=== PATIENT | female | born 1975 | race American Indian/Alaskan Native ===

== ENCOUNTER 2017-05-18 18:12 | Emergency (ER) | payer MEDICARE ==
--- NOTE | 2017-05-18 18:35 | Emergency Department Report ---
Entered by KING BARROS, acting as scribe for LIAM DIAZ NP. Chief Complaint: Chest Pain Stated Complaint: CHEST PAIN/LT SIDE PAIN Time Seen by Provider: 05/18/17 18:29 - HPI History of Present Illness: 41 y/o female presents to the ED c/o chest pain that began today. Associated symptoms include diaphoresis. Denies nausea and vomiting. Patient states her whole left side is aching and throbbing. NKDA. - ROS Review of Systems: +chest pain +diaphoresis -nausea -vomiting - Exam Vital Signs: Vital Signs 05/18/17 18:25 Temperature 98.7 F Pulse Rate 107 H Respiratory 20 Rate Blood Pressure 158/103 O2 Sat by Pulse 100 Oximetry Physical Exam: pt looks well, non toxic. obese cw not ttp mildy tachycardic MSE screening note: Focused history and physical exam performed. Due to findings the following was ordered: labs, ekg, xr ED Disposition for MSE Condition: Stable This documentation as recorded by the scribe,KING BARROS,accurately reflects the service I personally performed and the decisions made by JOE rodriguez TRACY M, SHEILA.
[2017-05-18 18:59] LABS: Basophils % (Auto) 0.9 % (0.0-1.8); Eosinophils % (Auto) 1.4 % (0.0-4.3); Hematocrit 31.6 % (30.3-42.9); Hemoglobin 9.5 gm/dl (10.1-14.3); Mean Corpuscular HGB Conc 30 % (30-34); Platelet Count 228 K/mm3 (140-440); Red Blood Count 4.73 M/mm3 (3.65-5.03); Red Cell Distribution Width 17.1 % (13.2-15.2); White Blood Count 7.9 K/mm3 (4.5-11.0)
[2017-05-18 19:00] LABS: Mean Corpuscular Hemoglobin 20 pg (28-32); Mean Corpuscular Volume 67 fl (79-97)
[2017-05-18 19:19] LABS: Alanine Aminotransferase 10 units/L (7-56); Albumin 4.1 g/dL (3.9-5); Albumin/Globulin Ratio 1.2 %; Alkaline Phosphatase 84 units/L (35-129); Anion Gap 21 mmol/L; BUN/Creatinine Ratio 8.57; Bilirubin,Total < 0.20 mg/dL (0.1-1.2); Blood Urea Nitrogen 6 mg/dL (7-17); Calcium 9.3 mg/dL (8.4-10.2); Carbon Dioxide 24 mmol/L (22-30); Chloride 95.6 mmol/L (98-107); Glucose 486 mg/dL (65-100); Potassium 3.3 mmol/L (3.6-5.0); Sodium 137 mmol/L (137-145); Total Protein 7.4 g/dL (6.3-8.2)
[2017-05-18 19:21] LABS: Urine Drugs of Abuse Note Disclamer
[2017-05-18 19:30] LABS: Bilirubin,Urine NEG (Negative); Blood,Urine NEG (Negative); Ketones,Urine NEG (Negative); Leukocyte Esterase,Urine NEG (Negative); Nitrite,Urine NEG (Negative); Protein,Urine <15 mg/dL mg/dL (Negative); RBC,Urine < 1.0 /HPF (0.0-6.0); Urobilinogen,Urine < 2.0 mg/dL (<2.0); WBC,Urine < 1.0 /HPF (0.0-6.0)
[2017-05-19] MEDS ORDERED: ZOFRAN IV ONE (01:10)
[2017-05-19] MEDS ORDERED: NACL 0.9% 1000 ML 1,000 ML IV ONE (01:10)
[2017-05-19] MEDS ORDERED: MORPHINE IV ONE (01:10)
[2017-05-19] MEDS ORDERED: K-DUR PO ONE (01:10)
--- NOTE | 2017-05-19 01:16 | Emergency Department Report ---
ED Chest Pain HPI - General Chief Complaint: Chest Pain Stated Complaint: CHEST PAIN/LT SIDE PAIN Time Seen by Provider: 05/18/17 18:29 Source: patient, old records reviewed (recent discharge summary reviewed. Patient had a negative stress test here 02/13/2016) Mode of arrival: Wheelchair Limitations: No Limitations - History of Present Illness Initial Comments: 41-year-old female with a past medical history as dependent diabetes, hypertension, elevated cholesterol, left BKA, and DVT presents to the hospital complains of left-sided chest pain and left leg pain. Patient has chronic left leg pain secondary to phantom pain and previous amputation. Patient states today she developed left-sided upper chest pain with some mild diaphoresis. Pain is intermittent, sharp, rated 8/10 in intensity, and some increased with movement. No change with deep inspiration, cough, shortness of breath, nausea, or vomiting reported. Patient was recently admitted here April 30 for acute left lower extremity DVT secondary to Xarelto noncompliance. Patient states she is taking her Xarelto daily since discharge. UDS + for cocaine. Pt states last use was April 16 - Related Data Home Medications Medication Instructions Recorded Confirmed Last Taken Atorvastatin Calcium 80 mg PO HS 09/24/16 04/30/17 04/29/17 Insulin Glargine [Lantus VIAL] 25 units SQ QHS 04/30/17 04/30/17 04/29/17 Insulin Lispro [HumaLOG VIAL] 25 units SQ QAM 04/30/17 04/30/17 04/29/17 Previous Rx's Medication Instructions Recorded Last Taken Type Hydrochlorothiazide [HCTZ] 12.5 mg PO QDAY #30 capsule 04/27/16 04/23/17 Rx Lisinopril [Zestril TAB] 40 mg PO QDAY #30 tablet 04/27/16 04/29/17 Rx Rivaroxaban [Xarelto] 15 mg PO BID #20 tablet 05/03/17 Unknown Rx Rivaroxaban [Xarelto] 20 mg PO QDAY #30 tablet 05/03/17 Unknown Rx HYDROcodone/APAP 5-325 [[place] 1 each PO Q6H PRN #15 tablet 05/19/17 Unknown Rx 5-325 mg TAB] Potassium Chloride [K-Dur] 20 meq PO QDAY #3 tablet 05/19/17 Unknown Rx Allergies Allergy/AdvReac Type Severity Reaction Status Date / Time No Known Allergies Allergy Verified 01/24/16 08:25 Heart Score - HEART Score History: Slightly suspicious EKG: Non-specific Age: < 45 Risk factors: > 3 risk factors or hx of atherosclerotic disease Troponin: < normal limit HEART Score: 3 ED Review of Systems ROS: Stated complaint: CHEST PAIN/LT SIDE PAIN Other details as noted in HPI Comment: All other systems reviewed and negative Other: Constitutional: No fevers chills Eyes: No eye pain visual changes ENT: No ear pain or throat pain Neck: Denies pain Respiratory: Denies cough wheezing shortness of breath Cardiovascular: Denies palpitations, syncope GI: Denies abdominal pain, nausea, vomiting, diarrhea : Denies dysuria Musculoskeletal: Denies back pain Skin: Denies rash, lesions, erythema Neurologic: Denies headache, numbness, weakness Psychiatric: Denies suicidal ideation, hallucinations ED Past Medical Hx - Past Medical History Hx Hypertension: Yes Hx Congestive Heart Failure: No Hx Diabetes: Yes (2005) Hx Deep Vein Thrombosis: Yes Hx Pulmonary Embolism: Yes Hx GERD: Yes Hx Arthritis: Yes Hx Asthma: No Hx COPD: No Hx HIV: No Additional medical history: high cholesterol - Surgical History Hx Cholecystectomy: Yes Additional Surgical History: L shoulder sgx 2008., DVT removal left leg 01/2016. c sec. left BKA - Social History Smoking Status: Current Every Day Smoker Substance Use Type: Alcohol - Medications Home Medications: Home Medications Medication Instructions Recorded Confirmed Last Taken Type Hydrochlorothiazide [HCTZ] 12.5 mg PO QDAY #30 capsule 04/27/16 04/30/17 Rx Lisinopril [Zestril TAB] 40 mg PO QDAY #30 tablet 04/27/16 04/30/17 04/29/17 Rx Atorvastatin Calcium 80 mg PO HS 09/24/16 04/30/17 04/29/17 History Insulin Glargine [Lantus VIAL] 25 units SQ QHS 04/30/17 04/30/17 04/29/17 History Insulin Lispro [HumaLOG VIAL] 25 units SQ QAM 04/30/17 04/30/17 04/29/17 History Rivaroxaban [Xarelto] 15 mg PO BID #20 tablet 05/03/17 Unknown Rx Rivaroxaban [Xarelto] 20 mg PO QDAY #30 tablet 05/03/17 Unknown Rx HYDROcodone/APAP 5-325 [[place] 1 each PO Q6H PRN #15 tablet 05/19/17 Unknown Rx 5-325 mg TAB] Potassium Chloride [K-Dur] 20 meq PO QDAY #3 tablet 05/19/17 Unknown Rx ED Physical Exam - General Limitations: No Limitations - Other Other exam information: General: No limitations, patient is alert in no acute distress Head exam: Atraumatic, normocephalic Eyes exam: Normal appearance ENT: Moist mucous membrane, normal oropharynx Neck exam: Normal inspection, full range of motion Cardiovascular: Normal rate and rhythm, normal heart sounds Abdomen: Soft, nondistended, and nontender, with normal bowel sounds, no rebound, or guarding Extremity: Full range of motion, left BKA without signs of swelling, tenderness , or leg asymmetry Back: Normal Inspection, full range of motion, no tenderness Neurologic: Alert, oriented x3, cranial nerves intact, no motor or sensory deficit Psychiatric: normal affect, normal mood Skin: Warm, dry, intact ED Course Vital Signs 05/18/17 05/19/17 05/19/17 18:25 00:57 01:00 Temperature 98.7 F Pulse Rate 107 H 95 H 88 Respiratory 20 14 12 Rate Blood Pressure 158/103 O2 Sat by Pulse 100 99 Oximetry 05/19/17 01:15 Temperature Pulse Rate 76 Respiratory Rate Blood Pressure O2 Sat by Pulse Oximetry - Reevaluation(s) Reevaluation #1: 05/19/17 01:18 Morphine, normal saline, insulin, Zofran, PO KCL ordered ct angiogram pending LEOBARDO score - Leobardo Score Age > 65: (0) No Aspirin use within the Past 7 Days: (0) No 3 or more CAD Risk Factors: (1) Yes 2 or more Angina events in past 24 hrs: (0) No Known CAD with more than 50% Stenosis: (0) No Elevated Cardiac Markers: (0) No ST Deviation Greater than 0.5mm: (0) No LEOBARDO Score: 1 ED Medical Decision Making - Lab Data Result diagrams: 05/18/17 18:45 05/18/17 18:45 Lab Results 05/18/17 05/18/17 05/18/17 Range/Units 18:45 18:45 18:45 WBC 7.9 (4.5-11.0) K/mm3 RBC 4.73 (3.65-5.03) M/mm3 Hgb 9.5 L (10.1-14.3) gm/dl Hct 31.6 (30.3-42.9) % MCV 67 L (79-97) fl MCH 20 L (28-32) pg MCHC 30 (30-34) % RDW 17.1 H (13.2-15.2) % Plt Count 228 (140-440) K/mm3 Lymph % (Auto) 23.8 (13.4-35.0) % [place] % (Auto) 3.9 (0.0-7.3) % Eos % (Auto) 1.4 (0.0-4.3) % Baso % (Auto) 0.9 (0.0-1.8) % Lymph # 1.9 (1.2-5.4) K/mm3 [place] # 0.3 (0.0-0.8) K/mm3 Eos # 0.1 (0.0-0.4) K/mm3 Baso # 0.1 (0.0-0.1) K/mm3 Seg Neutrophils % 70.0 (40.0-70.0) % Seg Neutrophils # 5.5 (1.8-7.7) K/mm3 Sodium 137 (137-145) mmol/L Potassium 3.3 L (3.6-5.0) mmol/L Chloride 95.6 L (98-107) mmol/L Carbon Dioxide 24 (22-30) mmol/L Anion Gap 21 mmol/L BUN 6 L (7-17) mg/dL Creatinine 0.7 (0.7-1.2) mg/dL Estimated GFR > 60 ml/min BUN/Creatinine Ratio 8.57 % Glucose 486 H (65-100) mg/dL Calcium 9.3 (8.4-10.2) mg/dL Total Bilirubin < 0.20 (0.1-1.2) mg/dL AST 10 (5-40) units/L ALT 10 (7-56) units/L Alkaline Phosphatase 84 (35-129) units/L Total Creatine Kinase (30-135) units/L Troponin T < 0.010 (0.00-0.029) ng/mL Total Protein 7.4 (6.3-8.2) g/dL Albumin 4.1 (3.9-5) g/dL Albumin/Globulin Ratio 1.2 % HCG, Qual Negative (Negative) Urine Color (Yellow) Urine Turbidity (Clear) Urine pH (5.0-7.0) Ur Specific Bell (1.003-1.030) Urine Protein (Negative) mg/dL Urine Glucose (UA) (Negative) mg/dL Urine Ketones (Negative) mg/dL Urine Blood (Negative) Urine Nitrite (Negative) Urine Bilirubin (Negative) Urine Urobilinogen (<2.0) mg/dL Ur Leukocyte Esterase (Negative) Urine WBC (Auto) (0.0-6.0) /HPF Urine RBC (Auto) (0.0-6.0) /HPF U Epithel Cells (Auto) (0-13.0) /HPF Urine HCG, Qual (Negative) Urine Opiates Screen Urine Methadone Screen Ur Barbiturates Screen Ur Phencyclidine Scrn Ur Amphetamines Screen U Benzodiazepines Scrn Urine Cocaine Screen U Marijuana (THC) Screen Drugs of Abuse Note 05/18/17 05/18/17 05/18/17 Range/Units 18:45 19:13 19:13 WBC (4.5-11.0) K/mm3 RBC (3.65-5.03) M/mm3 Hgb (10.1-14.3) gm/dl Hct (30.3-42.9) % MCV (79-97) fl MCH (28-32) pg MCHC (30-34) % RDW (13.2-15.2) % Plt Count (140-440) K/mm3 Lymph % (Auto) (13.4-35.0) % [place] % (Auto) (0.0-7.3) % Eos % (Auto) (0.0-4.3) % Baso % (Auto) (0.0-1.8) % Lymph # (1.2-5.4) K/mm3 [place] # (0.0-0.8) K/mm3 Eos # (0.0-0.4) K/mm3 Baso # (0.0-0.1) K/mm3 Seg Neutrophils % (40.0-70.0) % Seg Neutrophils # (1.8-7.7) K/mm3 Sodium (137-145) mmol/L Potassium (3.6-5.0) mmol/L Chloride (98-107) mmol/L Carbon Dioxide (22-30) mmol/L Anion Gap mmol/L BUN (7-17) mg/dL Creatinine (0.7-1.2) mg/dL Estimated GFR ml/min BUN/Creatinine Ratio % Glucose (65-100) mg/dL Calcium (8.4-10.2) mg/dL Total Bilirubin (0.1-1.2) mg/dL AST (5-40) units/L ALT (7-56) units/L Alkaline Phosphatase (35-129) units/L Total Creatine Kinase 58 (30-135) units/L Troponin T (0.00-0.029) ng/mL Total Protein (6.3-8.2) g/dL Albumin (3.9-5) g/dL Albumin/Globulin Ratio % HCG, Qual (Negative) Urine Color Straw (Yellow) Urine Turbidity Clear (Clear) Urine pH 7.0 (5.0-7.0) Ur Specific Bell 1.028 (1.003-1.030) Urine Protein <15 mg/dl (Negative) mg/dL Urine Glucose (UA) >=500 (Negative) mg/dL Urine Ketones Neg (Negative) mg/dL Urine Blood Neg (Negative) Urine Nitrite Neg (Negative) Urine Bilirubin Neg (Negative) Urine Urobilinogen < 2.0 (<2.0) mg/dL Ur Leukocyte Esterase Neg (Negative) Urine WBC (Auto) < 1.0 (0.0-6.0) /HPF Urine RBC (Auto) < 1.0 (0.0-6.0) /HPF U Epithel Cells (Auto) < 1.0 (0-13.0) /HPF Urine HCG, Qual (Negative) Urine Opiates Screen Presumptive negative Urine Methadone Screen Presumptive negative Ur Barbiturates Screen Presumptive negative Ur Phencyclidine Scrn Presumptive negative Ur Amphetamines Screen Presumptive negative U Benzodiazepines Scrn Presumptive negative Urine Cocaine Screen Presumptive positive U Marijuana (THC) Screen Presumptive negative Drugs of Abuse Note Disclamer 05/19/17 05/19/17 Range/Units 00:52 01:13 WBC (4.5-11.0) K/mm3 RBC (3.65-5.03) M/mm3 Hgb (10.1-14.3) gm/dl Hct (30.3-42.9) % MCV (79-97) fl MCH (28-32) pg MCHC (30-34) % RDW (13.2-15.2) % Plt Count (140-440) K/mm3 Lymph % (Auto) (13.4-35.0) % [place] % (Auto) (0.0-7.3) % Eos % (Auto) (0.0-4.3) % Baso % (Auto) (0.0-1.8) % Lymph # (1.2-5.4) K/mm3 [place] # (0.0-0.8) K/mm3 Eos # (0.0-0.4) K/mm3 Baso # (0.0-0.1) K/mm3 Seg Neutrophils % (40.0-70.0) % Seg Neutrophils # (1.8-7.7) K/mm3 Sodium (137-145) mmol/L Potassium (3.6-5.0) mmol/L Chloride (98-107) mmol/L Carbon Dioxide (22-30) mmol/L Anion Gap mmol/L BUN (7-17) mg/dL Creatinine (0.7-1.2) mg/dL Estimated GFR ml/min BUN/Creatinine Ratio % Glucose (65-100) mg/dL Calcium (8.4-10.2) mg/dL Total Bilirubin (0.1-1.2) mg/dL AST (5-40) units/L ALT (7-56) units/L Alkaline Phosphatase (35-129) units/L Total Creatine Kinase (30-135) units/L Troponin T < 0.010 (0.00-0.029) ng/mL Total Protein (6.3-8.2) g/dL Albumin (3.9-5) g/dL Albumin/Globulin Ratio % HCG, Qual (Negative) Urine Color (Yellow) Urine Turbidity (Clear) Urine pH (5.0-7.0) Ur Specific Bell (1.003-1.030) Urine Protein (Negative) mg/dL Urine Glucose (UA) (Negative) mg/dL Urine Ketones (Negative) mg/dL Urine Blood (Negative) Urine Nitrite (Negative) Urine Bilirubin (Negative) Urine Urobilinogen (<2.0) mg/dL Ur Leukocyte Esterase (Negative) Urine WBC (Auto) (0.0-6.0) /HPF Urine RBC (Auto) (0.0-6.0) /HPF U Epithel Cells (Auto) (0-13.0) /HPF Urine HCG, Qual Negative (Negative) Urine Opiates Screen Urine Methadone Screen Ur Barbiturates Screen Ur Phencyclidine Scrn Ur Amphetamines Screen U Benzodiazepines Scrn Urine Cocaine Screen U Marijuana (THC) Screen Drugs of Abuse Note - EKG Data -: EKG Interpreted by Me (sinus rate 97, lvh, lae, anteroseptal infarct) - EKG Data When compared to previous EKG there are: no significant change (compared to 04/29) - Radiology Data Radiology results: report reviewed, image reviewed (cxr: naf) ct angio chest: normal - Medical Decision Making UDs + cocaine (use 2-3 days ago) ekg unchanged trop neg x2 over [address] angio neg Plan to d/c pt home with pain meds for atypical cp and chronic left leg pain Pt consulted on the importance stopping cocaine use. - Differential Diagnosis atypical chest pain, pleurisy, OH, unstable angina, PE, disection Critical Care Time: No Critical care attestation.: If time is entered above; I have spent that time in minutes in the direct care of this critically ill patient, excluding procedure time. ED Disposition Clinical Impression: Atypical chest pain, Amputation of left lower extremity below knee, Diabetes, Anemia, Hypertension, Hypokalemia, Left leg DVT, Left leg pain, Cocaine abuse Disposition: TO HOME OR SELFCARE Is pt being admited?: No Does the pt Need Aspirin: No Condition: Stable Instructions: Chest Pain (ED), Diabetes Mellitus Type 2 in Adults (ED), Hypertension (ED), Cocaine Abuse (ED), Hypokalemia (ED) Additional Instructions: Take the medication as prescribed. STOP COCAINE USE. Return if symptom worsen. Prescriptions: HYDROcodone/APAP 5-325 [[place] 5-325 mg TAB] 1 each PO Q6H PRN #15 tablet PRN Reason: Pain, Moderate (4-6) Potassium Chloride [K-Dur] 20 meq PO QDAY #3 tablet Referrals: RK PADILLA III, FINANCIAL SERVICES ASSISTANT-BC [Primary Care Provider] - 3-5 Days Time of Disposition: 03:42
[2017-05-19] MEDS ORDERED: NACL ONE (01:25)
--- NOTE | 2017-05-19 02:19 | Cat Scan Report ---
FINAL REPORT PROCEDURE: CT ANGIO CHEST TECHNIQUE: Computerized tomographic angiography of the chest was performed after the IV injection of iodinated nonionic contrast including image processing. The image data was postprocessed using 2-dimensional multiplanar reformatted (MPR) and 3-dimensional (MIP and/or volume rendered) techniques. HISTORY: left sharp cp, hx of dvt COMPARISON: 02/12/2016 FINDINGS: Heart and pericardium: Normal. Thoracic aorta: Normal. Pulmonary vasculature: Normal. Lymph nodes: No enlarged thoracic lymph nodes. Lungs: Normal. Pleural space: No effusion, thickening, or pneumothorax. Musculoskeletal structures: No significant abnormality. Upper abdominal structures: No significant abnormality. IMPRESSION: Normal Examination
[2017-05-19 03:43] VITALS: BP 151/100
--- NOTE | 2017-05-19 07:56 | XRay Report ---
ROUTINE CHEST, TWO VIEWS: HISTORY: chest pain. The trachea, heart, mediastinal contour, lung rios and bony thorax are unremarkable. No significant change since 02/12/16. IMPRESSION: Unremarkable chest x-ray.
== END 2017-05-19 04:02 | disposition home or self-care (01) ==
LOC: ED 18:12
DX: R07.89 Other chest pain (principal); I10 Essential (primary) hypertension; E11.9 Type 2 diabetes mellitus without complications; E87.6 Hypokalemia; F14.10 Cocaine abuse, uncomplicated; I82.402 Acute embolism and thrombosis of unspecified deep veins of left lower extremity; D64.9 Anemia, unspecified; E78.00 Pure hypercholesterolemia, unspecified; F17.210 Nicotine dependence, cigarettes, uncomplicated; M19.90 Unspecified osteoarthritis, unspecified site; K21.9 Gastro-esophageal reflux disease without esophagitis; Z89.512 Acquired absence of left leg below knee; Z79.4 Long term (current) use of insulin
CPT/HCPCS: 36415; 71020; 71275; 80053; 80307; 81001; 81025; 82550; 82962; 84484; 84703; 85025; 93005; 93010; 96361; 96374; 96375; 99285; J2270; J2405; J7030; Q9967; J1815

== ENCOUNTER 2018-05-31 12:46 | Emergency (ER) | payer MEDICARE ==
[2018-05-31 13:04] VITALS: BP 187/111
== END 2018-05-31 13:04 | disposition left against medical advice (07) ==
LOC: ED 12:46
DX: R07.9 Chest pain, unspecified (principal); Z53.21 Procedure and treatment not carried out due to patient leaving prior to being seen by health care provider

== ENCOUNTER 2018-06-23 03:58 | Observation (INO) | payer MEDICARE ==
[2018-06-23] MEDS ORDERED: ASPIRIN PO ONE (04:44)
[2018-06-23 05:33] LABS: Basophils % (Auto) 0.8 % (0.0-1.8); Eosinophils # (Auto) 0.1 K/mm3 (0.0-0.4); Eosinophils % (Auto) 1.3 % (0.0-4.3); Hematocrit 38.4 % (30.3-42.9); Hemoglobin 12.8 gm/dl (10.1-14.3); Lymphocytes # (Auto) 1.9 K/mm3 (1.2-5.4); Lymphocytes % (Auto) 29.9 % (13.4-35.0); Mean Corpuscular HGB Conc 33 % (30-34); Mean Corpuscular Volume 78 fl (79-97); Monocytes # (Auto) 0.3 K/mm3 (0.0-0.8); Monocytes % (Auto) 4.6 % (0.0-7.3); Platelet Count 210 K/mm3 (140-440); Red Blood Count 4.95 M/mm3 (3.65-5.03); Red Cell Distribution Width 16.4 % (13.2-15.2)
[2018-06-23 05:36] LABS: Mean Corpuscular Hemoglobin 26 pg (28-32)
[2018-06-23 05:50] LABS: BUN/Creatinine Ratio 20; Blood Urea Nitrogen 12 mg/dL (7-17); Calcium 9.7 mg/dL (8.4-10.2); Hemolysis Index 10
[2018-06-23] MEDS ORDERED: MORPHINE IV ONE (10:46)
[2018-06-23] MEDS ORDERED: HumuLIN R IV ONE (10:46)
--- NOTE | 2018-06-23 10:49 | Emergency Department Report ---
ED Chest Pain HPI - General Chief Complaint: Chest Pain Stated Complaint: CHEST PAIN Time Seen by Provider: 06/23/18 10:25 Source: patient Mode of arrival: Ambulatory Limitations: No Limitations - History of Present Illness Initial Comments: 42-year-old female presents to the emergency department with a complaint of midsternal to left-sided chest pain that does not radiate that started about 3 AM this morning. She says that laying down makes it worse. Currently it is 8 out of 10 in intensity. She did not take anything for her symptoms prior to presentation. She denies any associated nausea, vomiting, fever, shortness of breath. Her primary care physician is Dr. Eyad Ortiz. She does not have a open hearth melter. She says it is been a few years since she had a stress test. She has a past medical history of hypertension, diabetes, GERD, DVT, PE, hyperlipidemia. The patient takes her Xarelto compliantly. She also has some history of peripheral general disease and left below-knee amputation. Severity scale (0 -10): 9 - Related Data Home Medications Medication Instructions Recorded Confirmed Last Taken Insulin Glargine [Lantus VIAL] 40 units SQ QHS 04/30/17 06/23/18 06/22/18 Ferrous Sulfate [Iron] 325 mg PO TID 06/23/18 06/23/18 06/22/18 Insulin Aspart Prot/Aspart(Nf) 30 units SUB-Q BID 06/23/18 06/23/18 06/22/18 [Novolog Mix 70/30] Pregabalin [Lyrica] 150 mg PO DAILY 06/23/18 06/23/18 06/22/18 Rivaroxaban [Xarelto] 15 mg PO QDAY 06/23/18 06/23/18 06/22/18 Previous Rx's Medication Instructions Recorded Last Taken Type Lisinopril [Zestril TAB] 40 mg PO QDAY #30 tablet 04/27/16 06/22/18 Rx Allergies Allergy/AdvReac Type Severity Reaction Status Date / Time No Known Allergies Allergy Verified 05/31/18 13:02 Heart Score - HEART Score History: Moderately suspicious EKG: Normal Age: < 45 Risk factors: > 3 risk factors or hx of atherosclerotic disease Troponin: < normal limit HEART Score: 3 - Critical Actions Critical Actions: 0-3 pts:0.9-1.7%risk of adverse cardiac event.Candidate for discharge ED Review of Systems ROS: Stated complaint: CHEST PAIN Other details as noted in HPI Comment: All other systems reviewed and negative Constitutional: denies: chills, fever Eyes: denies: eye pain, eye discharge, vision change ENT: denies: ear pain, throat pain Respiratory: denies: cough, shortness of breath, wheezing Cardiovascular: chest pain. denies: palpitations Gastrointestinal: denies: abdominal pain, nausea, diarrhea Genitourinary: denies: urgency, dysuria, discharge Musculoskeletal: denies: back pain, joint swelling, arthralgia Skin: denies: rash, lesions Neurological: denies: headache, weakness, paresthesias ED Past Medical Hx - Past Medical History Hx Hypertension: Yes Hx Congestive Heart Failure: No Hx Diabetes: Yes Hx Deep Vein Thrombosis: Yes Hx Pulmonary Embolism: Yes Hx GERD: Yes Hx Arthritis: Yes Hx Asthma: No Hx COPD: No Hx HIV: No Additional medical history: high cholesterol - Surgical History Hx Cholecystectomy: Yes Additional Surgical History: L shoulder sgx 2008., DVT removal left leg 01/2016. c sec. left BKA - Social History Smoking Status: Current Every Day Smoker Substance Use Type: None - Medications Home Medications: Home Medications Medication Instructions Recorded Confirmed Last Taken Type Lisinopril [Zestril TAB] 40 mg PO QDAY #30 tablet 04/27/16 06/23/18 06/22/18 Rx Insulin Glargine [Lantus VIAL] 40 units SQ QHS 04/30/17 06/23/18 06/22/18 History Ferrous Sulfate [Iron] 325 mg PO TID 06/23/18 06/23/18 06/22/18 History Insulin Aspart Prot/Aspart(Nf) 30 units SUB-Q BID 06/23/18 06/23/18 06/22/18 History [Novolog Mix 70/30] Pregabalin [Lyrica] 150 mg PO DAILY 06/23/18 06/23/18 06/22/18 History Rivaroxaban [Xarelto] 15 mg PO QDAY 06/23/18 06/23/18 06/22/18 History ED Physical Exam - General Limitations: No Limitations - Other Other exam information: GENERAL: The patient is well-developed well-nourished. HENT: Normocephalic. Atraumatic. Patient has moist mucous membranes. EYES: Extraocular motions are intact. Pupils equal reactive to light bilaterally. NECK: Supple. Trachea is midline. CHEST/LUNGS: Clear to auscultation. There is no respiratory distress noted. HEART/CARDIOVASCULAR: Regular. There is no tachycardia. There is no murmur. ABDOMEN: Abdomen is soft, nontender. Patient has normal bowel sounds. There is no abdominal distention. SKIN: Skin is warm and dry. NEURO: The patient is awake, alert, and oriented. The patient is cooperative. The patient has no focal neurologic deficits. The patient has normal speech. MUSCULOSKELETAL: There is no tenderness or deformity. There is no limitation range of motion. LLE BKA. ED Course Vital Signs 06/23/18 06/23/18 06/23/18 04:08 04:33 07:10 Temperature 98.3 F 98.3 F 97.7 F Pulse Rate 92 H 20 L 77 Respiratory 20 18 16 Rate Blood Pressure 191/106 191/106 148/92 Blood Pressure [Left] O2 Sat by Pulse 99 99 99 Oximetry 06/23/18 06/23/18 06/23/18 07:19 11:15 11:26 Temperature 97.7 F 97.6 F Pulse Rate 77 73 Respiratory 16 18 18 Rate Blood Pressure 148/92 Blood Pressure 183/99 [Left] O2 Sat by Pulse 99 100 Oximetry 06/23/18 12:26 Temperature Pulse Rate 84 Respiratory 18 Rate Blood Pressure Blood Pressure 155/99 [Left] O2 Sat by Pulse 100 Oximetry JAIRO score - Jairo Score Age > 65: (0) No Aspirin use within the Past 7 Days: (0) No 3 or more CAD Risk Factors: (1) Yes 2 or more Angina events in past 24 hrs: (1) Yes Known CAD with more than 50% Stenosis: (0) No Elevated Cardiac Markers: (0) No ST Deviation Greater than 0.5mm: (0) No JAIRO Score: 2 ED Medical Decision Making - Lab Data Result diagrams: 06/23/18 11:55 06/23/18 05:10 - EKG Data -: EKG Interpreted by Me EKG shows normal: sinus rhythm, axis (left axis deviation), intervals, QRS complexes (LVH), ST-T waves Rate: normal - EKG Data When compared to previous EKG there are: previous EKG unavailable Interpretation: LVH - Radiology Data Radiology results: image reviewed interpreted by me: Chest x-ray does not show any acute process. There are no pleural effusions, obvious pneumonia and there is no pneumothorax. - Medical Decision Making Patient was sent with some acute left-sided chest pain. She has a history of diabetes but appears uncontrolled as she presented with a blood sugar of about 560. No elevation in the anion gap and low suspicion for diabetic ketoacidosis. The patient also presented with very elevated blood pressure that did come down to a more reasonable level. She was given some IV insulin for her hyperglycemia. EKG did not show any signs of ST elevation IL. First troponin negative. However the patient has a few different risk factors for coronary artery disease and has not had a stress test in a few years. For these reasons the patient will be admitted the hospital for further evaluation and treatment and was accepted for admission by the hospitalist service. The patient has been seen here on the fast track side and we are working on getting her over to the main side of the emergency department for telemetry. - Differential Diagnosis IL, costochondritis, GERD, DKA, HHNK Critical Care Time: No Critical care attestation.: If time is entered above; I have spent that time in minutes in the direct care of this critically ill patient, excluding procedure time. ED Disposition Clinical Impression: Acute chest pain, Hyperglycemia Uncontrolled diabetes mellitus Qualifiers: Diabetes mellitus type: type 2 Glycemic state: with hyperglycemia Qualified Code(s): E11.65 - Type 2 diabetes mellitus with hyperglycemia Hypertension Qualifiers: Hypertension type: essential hypertension Qualified Code(s): I10 - Essential ( primary) hypertension Disposition: 09 OP ADMIT IP TO THIS HOSP Is pt being admited?: Yes Condition: Fair Time of Disposition: 13:03
--- NOTE | 2018-06-23 11:13 | History and Physical Report ---
History of Present Illness Date of examination: 06/23/18 Date of admission: 06/23/18 Chief complaint: chest pain History of present illness: 42-year-old female with h/o DM type 2 on insulin, hypertension , diabetes, GERD, DVT, PE on xarelto, hyperlipidemia, peripheral general disease and left below-knee amputation presents to the emergency department with a complaint of midsternal to left-sided chest pain that does not radiate that started about 3 AM this morning. She states that she woke up due to pain. pain was 8 out of 10 in intensity, sharp, denies any associated nausea, vomiting, fever, shortness of breath. In the ER her BG was 560, CE were normal and CXR w/o infiltrates. She is getting admited for further evaluation and management. Review of system: Constitutional: denies: chills, fever Eyes: denies: eye pain, eye discharge, vision change ENT: denies: ear pain, throat pain Respiratory: denies: cough, shortness of breath, wheezing Cardiovascular: + chest pain. denies: palpitations Gastrointestinal: denies: abdominal pain, nausea, diarrhea Genitourinary: denies: urgency, dysuria, discharge Musculoskeletal: denies: back pain, joint swelling, arthralgia Skin: denies: rash, lesions Neurological: denies: headache, weakness, paresthesias Past History Past Medical History: diabetes, DVT, hypertension, hyperlipidemia, pulmonary embolism Past Surgical History: Other (left BKA) Social history: lives with family. denies: smoking, alcohol abuse, prescription drug abuse Family history: diabetes, hypertension Medications and Allergies Allergies Allergy/AdvReac Type Severity Reaction Status Date / Time No Known Allergies Allergy Verified 05/31/18 13:02 Home Medications Medication Instructions Recorded Confirmed Last Taken Type Lisinopril [Zestril TAB] 40 mg PO QDAY #30 tablet 04/27/16 06/23/18 06/22/18 Rx Insulin Glargine [Lantus VIAL] 40 units SQ QHS 04/30/17 06/23/18 06/22/18 History Ferrous Sulfate [Iron] 325 mg PO TID 06/23/18 06/23/18 06/22/18 History Insulin Aspart Prot/Aspart(Nf) 30 units SUB-Q BID 06/23/18 06/23/18 06/22/18 History [Novolog Mix 70/30] Pregabalin [Lyrica] 150 mg PO DAILY 06/23/18 06/23/18 06/22/18 History Rivaroxaban [Xarelto] 15 mg PO QDAY 06/23/18 06/23/18 06/22/18 History Exam - Constitutional Vitals: Temp Pulse Resp BP Pulse Ox 97.7 F 77 16 148/92 99 06/23/18 07:19 06/23/18 07:19 06/23/18 07:19 06/23/18 07:19 06/23/18 07:19 General appearance: Present: no acute distress, well-nourished - EENT Eyes: Present: PERRL ENT: hearing intact, clear oral mucosa - Neck Neck: Present: supple, normal ROM - Respiratory Respiratory effort: normal Respiratory: bilateral: CTA - Cardiovascular Heart Sounds: Present: S1 & S2. Absent: rub, click - Extremities Extremities: pulses symmetrical, No edema, abnormal (left bka) Peripheral Pulses: within normal limits - Abdominal General gastrointestinal: Present: soft, non-tender, non-distended, normal bowel sounds - Integumentary Integumentary: Present: clear, warm, dry - Musculoskeletal Musculoskeletal: gait normal, strength equal bilaterally - Psychiatric Psychiatric: appropriate mood/affect, intact judgment & insight - Neurologic Neurologic: CNII-XII intact, moves all extremities Results - Labs CBC & Chem 7: 06/23/18 11:55 06/24/18 07:14 Labs: Abnormal lab results 06/23/18 06/23/18 06/23/18 Range/Units 05:10 05:10 08:22 MCV 78 L (79-97) fl MCH 26 L (28-32) pg RDW 16.4 H (13.2-15.2) % Sodium 135 L (137-145) mmol/L Chloride 96.9 L (98-107) mmol/L Creatinine 0.6 L (0.7-1.2) mg/dL Glucose 560 H* (65-100) mg/dL POC Glucose 400 H (70-105) - Imaging and Cardiology Chest x-ray: report reviewed (no infiltrates) Assessment and Plan Chest apin, r/o ACS DM type 2 with hyperglycemia HTN, uncontrolled PVD s/p left leg BKA h/o DVT/PE on xarelto Plan - trend trop, consult cardiology - monitor CE, EKG - obtain 2d echo, stress test - Monitor BG qACHS, place on insulin - resume xarelto and BP meds
[2018-06-23] MEDS ORDERED: APRESOLINE IV PRN (11:18)
[2018-06-23] MEDS ORDERED: NITROSTAT SL PRN (11:22)
[2018-06-23] MEDS ORDERED: SODIUM CHLORIDE FLUSH SYRINGE 10 ML IV PRN (11:22)
[2018-06-23 11:39] LABS: HCG Qualitative,Urine Negative (Negative)
[2018-06-23] MEDS ORDERED: NACL 0.9% 1000 ML 1,000 ML IV SCH (12:00)
--- NOTE | 2018-06-23 12:22 | XRay Report ---
AP CHEST: HISTORY: chest pain AP view of the chest demonstrates a normal mediastinal and cardiac contour with clear lungs and normal bony and soft tissue structures. IMPRESSION: Unremarkable AP chest.
[2018-06-23 12:36] LABS: Basophils # (Auto) 0.1 K/mm3 (0.0-0.1); Eosinophils # (Auto) 0.1 K/mm3 (0.0-0.4); Eosinophils % (Auto) 1.2 % (0.0-4.3); Hematocrit 38.7 % (30.3-42.9); Hemoglobin 12.9 gm/dl (10.1-14.3); Lymphocytes # (Auto) 2.1 K/mm3 (1.2-5.4); Lymphocytes % (Auto) 31.9 % (13.4-35.0); Mean Corpuscular HGB Conc 33 % (30-34); Mean Corpuscular Volume 77 fl (79-97); Monocytes # (Auto) 0.4 K/mm3 (0.0-0.8); Monocytes % (Auto) 6.2 % (0.0-7.3); Platelet Count 220 K/mm3 (140-440); Red Blood Count 5.01 M/mm3 (3.65-5.03); Red Cell Distribution Width 16.1 % (13.2-15.2)
[2018-06-23 12:37] LABS: Mean Corpuscular Hemoglobin 26 pg (28-32)
[2018-06-23 13:00] LABS: BUN/Creatinine Ratio 23; Blood Urea Nitrogen 9 mg/dL (7-17); Calcium 9.7 mg/dL (8.4-10.2); Hemolysis Index 5
[2018-06-23] MEDS: XARELTO PO SCH (13:49)
[2018-06-23] MEDS: FEOSOL PO SCH ×2 (13:49→21:24)
[2018-06-23] MEDS: MORPHINE IV PRN ×2 (16:46→21:31)
[2018-06-23] MEDS ORDERED: NON-FORMULARY (Insulin Aspart Prot/Aspart(Nf) 30 UNITS) SUB-Q SCH (22:00)
[2018-06-23] MEDS: HumuLIN R SUB-Q SCH (23:00)
[2018-06-24] MEDS: MORPHINE IV PRN ×3 (02:19→23:08)
[2018-06-24] MEDS: HumuLIN R SUB-Q SCH ×4 (07:40→23:16)
[2018-06-24 08:07] LABS: INR 0.94 (0.87-1.13)
[2018-06-24 08:16] LABS: BUN/Creatinine Ratio 25; Blood Urea Nitrogen 10 mg/dL (7-17); Calcium 9.1 mg/dL (8.4-10.2); Hemolysis Index 4
[2018-06-24] MEDS ORDERED: LEXISCAN IV ONE ×2 (09:01→09:09)
[2018-06-24] MEDS ORDERED: NON-FORMULARY (Pregabalin [Lyrica] 150 MG) PO SCH (10:00)
[2018-06-24] MEDS ORDERED: ZOFRAN ONE (10:08)
[2018-06-24] MEDS ORDERED: ZOFRAN IV ONE (10:30)
--- NOTE | 2018-06-24 11:37 | Consultation ---
History of Present Illness Consult date: 06/24/18 Consult reason: chest pain History of present illness: 42 year old female with acute onset chest pain retrosternal and non-radiating, non-exertional. Troponin negative, ECG showing no ischemic changes. No events on tele. Normal MPI and normal LVEF by echo. Past History Past Medical History: diabetes, DVT, GERD, hypertension, hyperlipidemia, pulmonary embolism Past Surgical History: Other (History of left leg AKA) Social history: smoking Medications and Allergies Allergies Allergy/AdvReac Type Severity Reaction Status Date / Time No Known Allergies Allergy Verified 05/31/18 13:02 Home Medications Medication Instructions Recorded Confirmed Last Taken Type Lisinopril [Zestril TAB] 40 mg PO QDAY #30 tablet 04/27/16 06/23/18 06/22/18 Rx Insulin Glargine [Lantus VIAL] 40 units SQ QHS 04/30/17 06/23/18 06/22/18 History Ferrous Sulfate [Iron] 325 mg PO TID 06/23/18 06/23/18 06/22/18 History Insulin Aspart Prot/Aspart(Nf) 30 units SUB-Q BID 06/23/18 06/23/18 06/22/18 History [Novolog Mix 70/30] Pregabalin [Lyrica] 150 mg PO DAILY 06/23/18 06/23/18 06/22/18 History Rivaroxaban [Xarelto] 15 mg PO QDAY 06/23/18 06/23/18 06/22/18 History Active Meds: Active Medications Aspirin (Ecotrin) 325 mg PO QDAY [facility] Atorvastatin Calcium (Lipitor) 40 mg PO QHS [facility] [place] Last Admin: 06/23/18 21:24 Dose: 40 mg Ferrous Sulfate (Feosol) 325 mg PO TID [facility] [place] Last Admin: 06/23/18 21:24 Dose: 325 mg Hydralazine HCl (Apresoline) 5 mg IV Q30MIN PRN PRN Reason: Hypertension Last Admin: 06/24/18 02:19 Dose: 5 mg Sodium Chloride (Nacl 0.9% 1000 Ml) 1,000 mls @ 75 mls/hr IV DIRECT [facility] [place] Insulin Human Isoph/Insulin Regular (Humulin 70/30) 30 unit SUB-Q BIDDIAB [facility] [place] Last Admin: 06/23/18 16:42 Dose: 30 unit Insulin Human Regular (Humulin R) 0 units SUB-Q ACHS [facility] [place]; Protocol Last Admin: 06/23/18 23:00 Dose: 2 units Lisinopril (Zestril) 40 mg PO QDAY [facility] [place] Morphine Sulfate (Morphine) 2 mg IV Q5MIN PRN PRN Reason: Chest Pain Last Admin: 06/24/18 02:19 Dose: 2 mg Nitroglycerin (Nitrostat) 0.4 mg SL Q5M PRN PRN Reason: Chest Pain Pantoprazole Sodium (Protonix) 40 mg PO QDAY [facility] Pregabalin (Lyrica) 150 mg PO QDAY [facility] [place] Rivaroxaban (Xarelto) 15 mg PO QDAY [facility] [place]; Protocol Last Admin: 06/23/18 13:49 Dose: 15 mg Sodium Chloride (Sodium Chloride Flush Syringe 10 Ml) 10 ml IV PRN PRN PRN Reason: LINE FLUSH Review of Systems All systems: negative Physical Examination Vital Signs Temp Pulse Resp BP Pulse Ox 98.3 F 92 H 20 191/106 99 06/23/18 04:08 06/23/18 04:08 06/23/18 04:08 06/23/18 04:08 06/23/18 04:08 General appearance: no acute distress HEENT: Positive: PERRL Neck: Positive: neck supple Cardiac: Positive: Reg Rate and Rhythm Lungs: Positive: Normal Exam Abdomen: Positive: Soft Results 06/23/18 11:55 06/24/18 07:14 Coagulation 06/24/18 Range/Units 07:14 PT 13.0 (12.2-14.9) Sec. INR 0.94 (0.87-1.13) CBC 06/23/18 Range/Units 11:55 WBC 6.6 (4.5-11.0) K/mm3 RBC 5.01 (3.65-5.03) M/mm3 Hgb 12.9 (10.1-14.3) gm/dl Hct 38.7 (30.3-42.9) % Plt Count 220 (140-440) K/mm3 Lymph # 2.1 (1.2-5.4) K/mm3 Converse # 0.4 (0.0-0.8) K/mm3 Eos # 0.1 (0.0-0.4) K/mm3 Baso # 0.1 (0.0-0.1) K/mm3 Comprehensive Metabolic Panel 06/23/18 06/24/18 Range/Units 11:55 07:14 Sodium 141 141 (137-145) mmol/L Potassium 3.7 3.5 L (3.6-5.0) mmol/L Chloride 102.7 102.9 (98-107) mmol/L Carbon Dioxide 22 26 (22-30) mmol/L BUN 9 10 (7-17) mg/dL Creatinine 0.4 L 0.4 L (0.7-1.2) mg/dL Glucose 256 H 190 H (65-100) mg/dL Calcium 9.7 9.1 (8.4-10.2) mg/dL EKG interpretations - Telemetry EKG Rhythm: Sinus Rhythm Assessment and Plan Atypical chest pain Negative troponin x 3 No ischemic ECG changes Normal CXR Normal LVEF Normal MPI Type II DM Systemic Hypertension Hyperlipidemia History of DVT and PE on xarelto PVD with history of left leg AKA Recommendations: No further cardiac work-up is needed for atypical low risk chest pain and cardiac findings
--- NOTE | 2018-06-24 13:43 | Treadmill Report ---
INDICATION: Chest pain. ORDERING PHYSICIAN: Efrain Orozco MD FINDINGS: There is no scintigraphic evidence of myocardial ischemia. The left ventricle is normal in size. Left ventricular ejection fraction is measured at 67%. There is normal wall motion and wall thickening on gated imaging. CONCLUSION: Normal perfusion scan. JOB# [id number] AKLillie/NTS
--- NOTE | 2018-06-24 15:01 | Progress Note ---
Assessment and Plan Chest apin, ruled out ACS DM type 2 with hyperglycemia HTN, uncontrolled PVD s/p left leg BKA h/o DVT/PE on xarelto hypokalemia, will replete Plan - stress test negative today - preserved EF on 2d echo, - Monitor BG qACHS, placed on insulin - will further adjust insulin dose for better BG control - will adjust BP meds - resumed xarelto Subjective Date of service: 06/24/18 Interval history: Pt seen and examined stress test was normal today BP remained elevated Objective - Constitutional Vitals: Vital Signs - 12hr 06/24/18 06/24/18 06/24/18 04:41 07:43 09:00 Temperature 98.3 F 98.4 F Pulse Rate 84 87 80 Respiratory 18 18 Rate Blood Pressure 136/84 149/86 163/98 Blood Pressure [Left] O2 Sat by Pulse 97 98 Oximetry 06/24/18 06/24/18 06/24/18 09:17 09:49 09:50 Temperature 98.4 F Pulse Rate 82 121 H 111 H Respiratory 18 Rate Blood Pressure 175/106 193/103 Blood Pressure 149/86 [Left] O2 Sat by Pulse 97 Oximetry 06/24/18 06/24/18 06/24/18 09:51 09:52 09:53 Temperature Pulse Rate 100 H 98 H 98 H Respiratory Rate Blood Pressure 184/97 161/92 166/90 Blood Pressure [Left] O2 Sat by Pulse Oximetry 06/24/18 06/24/18 09:54 13:10 Temperature 97.8 F Pulse Rate 96 H 95 H Respiratory 98 H Rate Blood Pressure 146/88 Blood Pressure 164/115 [Left] O2 Sat by Pulse 98 Oximetry General appearance: Present: no acute distress, obese - EENT Eyes: PERRL, EOM intact ENT: hearing intact, clear oral mucosa Ears: bilateral: normal - Neck Neck: supple, normal ROM - Respiratory Respiratory effort: normal Respiratory: bilateral: CTA - Cardiovascular Rhythm: regular Heart Sounds: Present: S1 & S2. Absent: gallop, rub Extremities: pulses intact, No edema, normal color, Full ROM - Gastrointestinal General gastrointestinal: Present: soft, non-tender, non-distended, normal bowel sounds - Integumentary Integumentary: clear, warm, dry - Musculoskeletal Musculoskeletal: 1, strength equal bilaterally - Neurologic Neurologic: moves all extremities - Psychiatric Psychiatric: memory intact, appropriate mood/affect, intact judgment & insight - Labs CBC & Chem 7: 06/23/18 11:55 06/24/18 07:14 Labs: Abnormal lab results 06/23/18 06/23/18 06/23/18 Range/Units 15:32 16:07 22:13 Potassium (3.6-5.0) mmol/L Creatinine (0.7-1.2) mg/dL Glucose (65-100) mg/dL POC Glucose 320 H 353 H 232 H (70-105) 06/24/18 06/24/18 06/24/18 Range/Units 06:48 07:14 11:58 Potassium 3.5 L (3.6-5.0) mmol/L Creatinine 0.4 L (0.7-1.2) mg/dL Glucose 190 H (65-100) mg/dL POC Glucose 184 H 275 H (70-105)
[2018-06-24] MEDS: FEOSOL PO SCH ×3 (17:04→23:09)
[2018-06-24] MEDS: ECOTRIN PO SCH (17:05)
[2018-06-24] MEDS: LYRICA PO SCH (17:05)
[2018-06-24] MEDS: PROTONIX PO SCH (17:07)
[2018-06-24] MEDS: XARELTO PO SCH (17:08)
[2018-06-24] MEDS: ZESTRIL PO SCH (17:09)
[2018-06-24] MEDS ORDERED: COREG PO SCH (22:00)
[2018-06-24] MEDS: COREG PO SCH (23:10)
[2018-06-25] MEDS ORDERED: K-DUR PO ONE ×2 (00:12→07:00)
[2018-06-25] MEDS: MORPHINE IV PRN (06:29)
[2018-06-25] MEDS: FEOSOL PO SCH ×3 (08:59→23:17)
[2018-06-25] MEDS: HumuLIN R SUB-Q SCH ×4 (08:59→23:17)
--- NOTE | 2018-06-25 10:11 | Progress Note ---
Assessment and Plan 1. Atypical chest pain. 2. Left shoulder pain 3. Essential hypertension 4. Type 2 diabetes mellitus 5. History of DVT and pulmonary embolism 6. Hyperlipidemia Plan. Patient is currently stable cardiac-bryant low posttest probability for ischemic coronary artery disease given negative Lexiscan MPI Subjective Date of service: 06/25/18 Interval history: No cardiac symptoms. Objective Vital Signs Temp Pulse Resp BP BP Pulse Ox 06/25/18 07:54 98.2 F 79 20 149/94 97 06/25/18 03:54 96.1 F L 82 17 108/71 99 06/25/18 00:25 97.5 F L 83 18 145/98 98 06/24/18 22:00 90 18 06/24/18 19:40 98.4 F 88 18 165/97 93 06/24/18 15:46 98.8 F 124 H 18 113/79 98 06/24/18 13:10 97.8 F 95 H 98 H 164/115 98 - Physical Examination General: Appears Well, No Apparent Distress HEENT: Positive: PERRL, Mucus Membranes Moist Neck: Positive: neck supple. Negative: JVD/HJR Cardiac: Positive: Regular Rate, S1/S2, S3, PMI, Laterally Displaced Lungs: Positive: clear to auscultation, No Wheeze, Rales, Rhonchi Neuro: Positive: Grossly Intact, No Lateralizing Findings Abdomen: Positive: Unremarkable, Soft, Active Bowel Sounds Extremities: Present: Other (left BKA). Absent: edema - Telemetry EKG Rhythm: Sinus Rhythm
--- NOTE | 2018-06-25 11:53 | Discharge Summary ---
Providers - Providers Date of Admission: 06/23/18 11:13 Date of discharge: 06/26/18 Attending physician: TASIA BRADLEY 06/23/18 Consult to Cardiac Rehabilitation [CONS] Routine Reason For Exam: Phase I 06/23/18 11:24 Consult to Cardiology [CONS] Routine Consulting Provider: TRISHA SCHAFER Reason For Exam: chest pain Primary care physician: INSURANCE COORDINATOR Hospitalization Condition: Fair Hospital course: Discharge Diagnosis: Chest apin, ruled out ACS DM type 2 with hyperglycemia HTN, uncontrolled PVD s/p left leg BKA h/o DVT/PE on xarelto hypokalemia, repleted Disposition: [id number] HOME [facility] Time spent for discharge: 34 minutes Core Measure Documentation - Palliative Care Palliative Care/ Comfort Measures: Not Applicable - Core Measures Any of the following diagnoses?: none Exam - Physical Exam Narrative exam: General appearance: Present: no acute distress, obese - EENT Eyes: PERRL, EOM intact ENT: hearing intact, clear oral mucosa Ears: bilateral: normal - Neck Neck: supple, normal ROM - Respiratory Respiratory effort: normal Respiratory: bilateral: CTA - Cardiovascular Rhythm: regular Heart Sounds: Present: S1 & S2. Absent: gallop, rub Extremities: pulses intact, No edema, normal color, Full ROM - Gastrointestinal General gastrointestinal: Present: soft, non-tender, non-distended, normal bowel sounds - Integumentary Integumentary: clear, warm, dry - Musculoskeletal Musculoskeletal: 1, strength equal bilaterally - Neurologic Neurologic: moves all extremities - Psychiatric Psychiatric: memory intact, appropriate mood/affect, intact judgment & insight - Constitutional Vitals: Temp Pulse Resp BP Pulse Ox 98.2 F 79 20 149/94 97 06/25/18 07:54 06/25/18 07:54 06/25/18 07:54 06/25/18 07:54 06/25/18 07:54 Plan Activity: advance as tolerated Follow up with: PRIMARY CARE, [Primary Care Provider] - 3-5 Days Prescriptions: AtorvaSTATin [Lipitor] 40 mg PO QHS #30 tablet Carvedilol [Coreg] 3.125 mg PO BID #60 tablet Ferrous Sulfate [Iron] 325 mg PO TID #90 tablet hydrALAZINE [Apresoline TAB] 100 mg PO TID #90 tab Insulin Aspart Protam & Aspart [NovoLOG Mix 70-30 Flexpen] 35 unit SQ BID 30 Days ml Lisinopril [Zestril TAB] 40 mg PO QDAY #30 tablet Pantoprazole [Protonix TAB] 40 mg PO QDAY #30 tablet Pregabalin [Lyrica] 150 mg PO QDAY #30 capsule Rivaroxaban [Xarelto] 15 mg PO QDAY #30 tablet
[2018-06-25] MEDS: COREG PO SCH ×2 (12:17→23:16)
[2018-06-25] MEDS: ECOTRIN PO SCH (12:18)
[2018-06-25] MEDS: PROTONIX PO SCH (12:19)
[2018-06-25] MEDS: XARELTO PO SCH (12:19)
[2018-06-25] MEDS: LYRICA PO SCH (12:19)
[2018-06-25] MEDS: ZESTRIL PO SCH (12:20)
[2018-06-25] MEDS ORDERED: TYLENOL PO ONE (14:56)
[2018-06-25] MEDS ORDERED: PHENERGAN PR PRN (19:26)
[2018-06-25] MEDS ORDERED: CATAPRES PO ONE ×2 (20:00→21:00)
[2018-06-25] MEDS ORDERED: APRESOLINE PO SCH (20:11)
[2018-06-26] MEDS: HumuLIN R SUB-Q SCH (07:35)
--- NOTE | 2018-06-26 07:38 | Progress Note ---
Assessment and Plan Chest apin, ruled out ACS - likely from GERD - stress test negative - preserved EF on 2d echo DM type 2 with hyperglycemia - Monitor BG qACHS, placed on insulin - will further adjust insulin dose for better BG control HTN, uncontrolled/Accelerated - cont coreg, lisinopril, add hydralazine PVD s/p left leg BKA - cont aspirin, xarelto and statin h/o DVT/PE on xarelto hypokalemia, repleted Disposition: Likely tomorrow if BP stable Subjective Date of service: 06/25/18 Interval history: Pt seen and examined Pt c/o nausea Planned to d/c today but SBP remained elevated >200 Objective - Exam Narrative Exam: General appearance: Present: no acute distress, obese - EENT Eyes: PERRL, EOM intact ENT: hearing intact, clear oral mucosa Ears: bilateral: normal - Neck Neck: supple, normal ROM - Respiratory Respiratory effort: normal Respiratory: bilateral: CTA - Cardiovascular Rhythm: regular Heart Sounds: Present: S1 & S2. Absent: gallop, rub Extremities: pulses intact, No edema, normal color, Full ROM - Gastrointestinal General gastrointestinal: Present: soft, non-tender, non-distended, normal bowel sounds - Integumentary Integumentary: clear, warm, dry - Musculoskeletal Musculoskeletal: 1, strength equal bilaterally - Neurologic Neurologic: moves all extremities - Psychiatric Psychiatric: memory intact, appropriate mood/affect, intact judgment & insight - Constitutional Vitals: Vital Signs - 12hr 06/25/18 06/25/18 06/25/18 20:06 21:48 21:57 Pulse Rate 74 Pulse Rate [ Right Radial] Respiratory Rate Respiratory 17 Rate [Chest] Blood Pressure 210/117 06/25/18 06/25/18 06/25/18 22:00 23:16 23:19 Pulse Rate 84 84 Pulse Rate [ 70 Right Radial] Respiratory 18 Rate Respiratory Rate [Chest] Blood Pressure 158/94 158/94 - Labs CBC & Chem 7: 06/23/18 11:55 06/24/18 07:14 Labs: Abnormal lab results 06/25/18 06/25/18 06/26/18 Range/Units 11:04 22:08 05:50 POC Glucose 160 H 182 H 154 H (70-105)
[2018-06-26] MEDS ORDERED: APRESOLINE PO SCH (08:00)
[2018-06-26] MEDS: FEOSOL PO SCH (08:45)
[2018-06-26] MEDS: LYRICA PO SCH (09:06)
[2018-06-26] MEDS: ZESTRIL PO SCH (09:06)
[2018-06-26] MEDS: XARELTO PO SCH (09:07)
[2018-06-26] MEDS: COREG PO SCH (09:07)
[2018-06-26] MEDS: ECOTRIN PO SCH (09:07)
[2018-06-26] MEDS: PROTONIX PO SCH (09:07)
[2018-06-26 09:15] LABS: BUN/Creatinine Ratio 20; Blood Urea Nitrogen 10 mg/dL (7-17); Calcium 9.8 mg/dL (8.4-10.2); Hemolysis Index 14
[2018-06-26 09:25] VITALS: BP 121/80
--- NOTE | 2018-06-26 10:03 | Progress Note ---
Assessment and Plan 1. Atypical chest pain resolved 2. Left shoulder pain 3. Essential hypertension 4. Type 2 diabetes mellitus 5. History of DVT and pulmonary embolism 6. Hyperlipidemia Plan. Patient is currently stable cardiac-bryant low posttest probability for ischemic coronary artery disease given negative Lexiscan MPI Discharge planning Subjective Date of service: 06/26/18 Interval history: No cardiac symptoms. Objective Vital Signs Temp Pulse Pulse Resp Resp BP Pulse Ox 06/26/18 09:07 84 121/80 06/26/18 09:06 84 121/80 06/26/18 08:54 94 H 06/26/18 08:50 94 H 06/26/18 07:57 98.1 F 79 18 121/80 100 06/26/18 04:30 97.5 F L 81 18 105/72 96 06/25/18 23:19 84 158/94 06/25/18 23:16 84 158/94 06/25/18 22:00 70 18 06/25/18 21:57 17 06/25/18 21:48 74 06/25/18 20:06 210/117 06/25/18 19:29 98.7 F 18 210/117 06/25/18 15:06 97.9 F 77 20 164/94 98 06/25/18 12:20 86 149/94 06/25/18 12:17 86 149/94 06/25/18 10:56 97.9 F 77 20 151/94 95 - Physical Examination General: Appears Well, No Apparent Distress HEENT: Positive: PERRL, Mucus Membranes Moist Neck: Positive: neck supple. Negative: JVD/HJR Cardiac: Positive: Regular Rate, S1/S2. Negative: S3, S4 Lungs: Positive: clear to auscultation, No Wheeze, Rales, Rhonchi Neuro: Positive: Grossly Intact, No Lateralizing Findings Abdomen: Positive: Unremarkable, Soft, Active Bowel Sounds Extremities: Present: Other (left BKA). Absent: edema - Labs and Meds Comprehensive Metabolic Panel 06/26/18 Range/Units 08:49 Sodium 140 (137-145) mmol/L Potassium 3.4 L (3.6-5.0) mmol/L Chloride 99.6 (98-107) mmol/L Carbon Dioxide 26 (22-30) mmol/L BUN 10 (7-17) mg/dL Creatinine 0.5 L (0.7-1.2) mg/dL Glucose 221 H (65-100) mg/dL Calcium 9.8 (8.4-10.2) mg/dL
[2018-06-26] MEDS ORDERED: K-DUR PO ONE (15:01)
== END 2018-06-26 15:50 | disposition home health service (06) ==
LOC: ED 03:58 → 4A 11:13
PROVIDERS: ADMIT Internal Medicine; ATTEND Internal Medicine
DX: R07.89 Other chest pain (principal); I10 Essential (primary) hypertension; E11.65 Type 2 diabetes mellitus with hyperglycemia; E78.5 Hyperlipidemia, unspecified; E87.6 Hypokalemia; I73.9 Peripheral vascular disease, unspecified; M19.90 Unspecified osteoarthritis, unspecified site; K21.9 Gastro-esophageal reflux disease without esophagitis; E78.00 Pure hypercholesterolemia, unspecified; F17.200 Nicotine dependence, unspecified, uncomplicated; Z79.01 Long term (current) use of anticoagulants; Z79.4 Long term (current) use of insulin; Z86.711 Personal history of pulmonary embolism; Z86.718 Personal history of other venous thrombosis and embolism; Z89.512 Acquired absence of left leg below knee; Z82.49 Family history of ischemic heart disease and other diseases of the circulatory system
CPT/HCPCS: 36415; 71045; 78452; 80048; 81025; 82962; 83036; 84484; 85025; 85610; 93005; 93010; 93017; 93306; 96372; 96374; 96375; 96376; 99285; A9270; A9502; G0378; J0360; J2270; J2405; J2785; J1815

== ENCOUNTER 2018-08-01 00:59 | Emergency (ER) | payer MEDICARE ==
[2018-08-01] MEDS ORDERED: ASPIRIN PO ONE (02:34)
[2018-08-01 03:03] LABS: Basophils % (Auto) 0.6 % (0.0-1.8); Eosinophils # (Auto) 0.1 K/mm3 (0.0-0.4); Eosinophils % (Auto) 1.3 % (0.0-4.3); Hematocrit 39.5 % (30.3-42.9); Hemoglobin 13.5 gm/dl (10.1-14.3); Lymphocytes # (Auto) 2.7 K/mm3 (1.2-5.4); Lymphocytes % (Auto) 33.6 % (13.4-35.0); Mean Corpuscular HGB Conc 34 % (30-34); Mean Corpuscular Hemoglobin 27 pg (28-32); Mean Corpuscular Volume 78 fl (79-97); Monocytes # (Auto) 0.5 K/mm3 (0.0-0.8); Monocytes % (Auto) 5.7 % (0.0-7.3); Platelet Count 231 K/mm3 (140-440); Red Blood Count 5.05 M/mm3 (3.65-5.03); Red Cell Distribution Width 16.8 % (13.2-15.2)
[2018-08-01 03:25] LABS: BUN/Creatinine Ratio 23; Blood Urea Nitrogen 14 mg/dL (7-17); Calcium 9.5 mg/dL (8.4-10.2); Hemolysis Index 2
[2018-08-01] MEDS ORDERED: ASPIRIN ONE (06:30)
[2018-08-01] MEDS ORDERED: ZOFRAN IV ONE (06:40)
[2018-08-01] MEDS ORDERED: MORPHINE IV ONE (06:40)
[2018-08-01] MEDS ORDERED: HumuLIN R IV ONE (06:44)
[2018-08-01] MEDS ORDERED: NACL 0.9% 1000 ML 1,000 ML IV ONE (06:46)
--- NOTE | 2018-08-01 08:19 | Emergency Department Report ---
ED Chest Pain HPI - General Chief Complaint: Chest Pain Stated Complaint: LEFT SHOULDER,CHEST PAIN Time Seen by Provider: 08/01/18 06:09 Source: patient Mode of arrival: Ambulatory Limitations: No Limitations - History of Present Illness Initial Comments: 43-year-old female with a past medical history of peripheral vascular disease, DVT, diabetes, gastroesophageal reflux disease, hypertension presents with the complaint of chest pain. Patient states that she initially had a chest pain beginning at 11:30 PM. Patient's describes the pain as a left shoulder pain. Patient states that this was squeezing in nature. Patient also states that she felt a pinch in her right chest. Patient was recently admitted and discharged from this facility after having a stress test which was negative. Patient states she's been compliant with her as a reptile therapy for her pulmonary embolism. Patient complains of a dry cough. Patient denies diaphoresis but complains of numbness and tingling in the left upper extremity. - Related Data Previous Rx's Medication Instructions Recorded Last Taken Type AtorvaSTATin [Lipitor] 40 mg PO QHS #30 tablet 06/25/18 Unknown Rx Carvedilol [Coreg] 3.125 mg PO BID #60 tablet 06/25/18 Unknown Rx Ferrous Sulfate [Iron] 325 mg PO TID #90 tablet 06/25/18 Unknown Rx Lisinopril [Zestril TAB] 40 mg PO QDAY #30 tablet 06/25/18 Unknown Rx Pantoprazole [Protonix TAB] 40 mg PO QDAY #30 tablet 06/25/18 Unknown Rx Pregabalin [Lyrica] 150 mg PO QDAY #30 capsule 06/25/18 Unknown Rx Rivaroxaban [Xarelto] 15 mg PO QDAY #30 tablet 06/25/18 Unknown Rx Insulin Aspart Protam & Aspart 35 unit SQ BID 30 Days ml 06/26/18 Unknown Rx [NovoLOG Mix 70-30 Flexpen] hydrALAZINE [Apresoline TAB] 100 mg PO TID #90 tab 06/26/18 Unknown Rx HYDROcodone/APAP 5-325 [[place] 1 each PO Q6HR PRN #20 tablet 08/01/18 Unknown Rx 5/325] Allergies Allergy/AdvReac Type Severity Reaction Status Date / Time No Known Allergies Allergy Verified 05/31/18 13:02 Heart Score - HEART Score History: Slightly suspicious EKG: Non-specific Age: < 45 Risk factors: > 3 risk factors or hx of atherosclerotic disease Troponin: < normal limit HEART Score: 3 - Critical Actions Critical Actions: 0-3 pts:0.9-1.7%risk of adverse cardiac event.Candidate for discharge ED Review of Systems ROS: Stated complaint: LEFT SHOULDER,CHEST PAIN Other details as noted in HPI Constitutional: denies: chills, fever Eyes: denies: eye pain, eye discharge, vision change ENT: denies: ear pain, throat pain Respiratory: SOB at rest Cardiovascular: chest pain Endocrine: no symptoms reported Gastrointestinal: denies: abdominal pain, nausea, diarrhea Genitourinary: denies: urgency, dysuria, discharge Musculoskeletal: denies: back pain, joint swelling, arthralgia Skin: denies: rash, lesions Neurological: denies: headache, weakness, paresthesias Hematological/Lymphatic: denies: easy bleeding, easy bruising ED Past Medical Hx - Past Medical History Previous Medical History?: Yes Hx Hypertension: Yes Hx Congestive Heart Failure: No Hx Diabetes: Yes Hx Deep Vein Thrombosis: Yes Hx Pulmonary Embolism: Yes Hx GERD: Yes Hx Arthritis: Yes Hx Asthma: No Hx COPD: No Hx HIV: No Additional medical history: high cholesterol - Surgical History Past Surgical History?: Yes Hx Cholecystectomy: Yes Additional Surgical History: L shoulder sx 2008, DVT removal left leg 01/2016. c sec. left BKA 2015 - Social History Smoking Status: Current Every Day Smoker Substance Use Type: None - Medications Home Medications: Home Medications Medication Instructions Recorded Confirmed Last Taken Type AtorvaSTATin [Lipitor] 40 mg PO QHS #30 tablet 06/25/18 Unknown Rx Carvedilol [Coreg] 3.125 mg PO BID #60 tablet 06/25/18 Unknown Rx Ferrous Sulfate [Iron] 325 mg PO TID #90 tablet 06/25/18 Unknown Rx Lisinopril [Zestril TAB] 40 mg PO QDAY #30 tablet 06/25/18 Unknown Rx Pantoprazole [Protonix TAB] 40 mg PO QDAY #30 tablet 06/25/18 Unknown Rx Pregabalin [Lyrica] 150 mg PO QDAY #30 capsule 06/25/18 Unknown Rx Rivaroxaban [Xarelto] 15 mg PO QDAY #30 tablet 06/25/18 Unknown Rx Insulin Aspart Protam & Aspart 35 unit SQ BID 30 Days ml 06/26/18 Unknown Rx [NovoLOG Mix 70-30 Flexpen] hydrALAZINE [Apresoline TAB] 100 mg PO TID #90 tab 06/26/18 Unknown Rx HYDROcodone/APAP 5-325 [[place] 1 each PO Q6HR PRN #20 tablet 08/01/18 Unknown Rx 5/325] ED Physical Exam - General Limitations: No Limitations, Physical Limitation (patient has amputation of Left Lower extremity) General appearance: alert, in no apparent distress - Head Head exam: Present: atraumatic, normocephalic - Eye Eye exam: Present: normal appearance - ENT ENT exam: Present: mucous membranes moist - Neck Neck exam: Present: normal inspection - Respiratory Respiratory exam: Present: normal lung sounds bilaterally. Absent: respiratory distress - Cardiovascular Cardiovascular Exam: Present: regular rate, normal rhythm. Absent: systolic murmur, diastolic murmur, rubs, gallop - GI/Abdominal GI/Abdominal exam: Present: soft, normal bowel sounds - Rectal Rectal exam: Present: deferred - Extremities Exam Extremities exam: Present: other (patient has the presence of Left BKA) - Back Exam Back exam: Present: normal inspection - Neurological Exam Neurological exam: Present: alert, oriented X3 - Psychiatric Psychiatric exam: Present: normal affect, normal mood - Skin Skin exam: Present: warm, dry, intact, normal color. Absent: rash ED Course Vital Signs 08/01/18 08/01/18 08/01/18 01:09 08:51 11:50 Temperature 98.4 F 98.3 F Pulse Rate 101 H 80 86 Respiratory 18 16 16 Rate Blood Pressure 129/92 Blood Pressure 154/95 141/80 [Left] O2 Sat by Pulse 96 100 100 Oximetry - Reevaluation(s) Reevaluation #1: 08/01/18 11:56 Has had improvement of her pain status post receiving IV morphine therapy. Patient also received a bolus of IV fluids with her elevated glucose. LEOBARDO score - Leobardo Score Age > 65: (0) No (Low suspicion for cardiac disease) Aspirin use within the Past 7 Days: (0) No 3 or more CAD Risk Factors: (1) Yes 2 or more Angina events in past 24 hrs: (0) No Known CAD with more than 50% Stenosis: (0) No Elevated Cardiac Markers: (0) No ST Deviation Greater than 0.5mm: (0) No LEOBARDO Score: 1 ED Medical Decision Making - Lab Data Result diagrams: 08/01/18 02:43 08/01/18 02:43 - EKG Data -: EKG Interpreted by Me EKG shows normal: sinus rhythm Rate: normal - EKG Data Interpretation: no acute changes, LVH - Radiology Data Radiology results: image reviewed - Medical Decision Making Patient is currently on Xarelto therapy. Patient had a troponin which was 0.01. Patient had a subsequent troponin which was normal. Patient had recent study which was normal last month. She did receive IV morphine and IV Zofran therapy while in the emergency department. Patient received IV fluids and her glucose has down trended. She appears comfortable and will be discharged to follow-up as an outpatient with cardiology as an outpatient. - Differential Diagnosis DDX: STEMI; NSTEMI; electrolyte abnormality; anemia; pneumonia; pneumotho Critical Care Time: No Critical care attestation.: If time is entered above; I have spent that time in minutes in the direct care of this critically ill patient, excluding procedure time. ED Disposition Clinical Impression: Diabetes mellitus type 2, uncontrolled, with complications, Atypical chest pain , Chest pain Disposition: DC- TO HOME OR SELFCARE Is pt being admited?: No Does the pt Need Aspirin: No Condition: Stable Instructions: Chest Pain (ED), Diabetes Mellitus Type 2 in Adults (ED) Prescriptions: HYDROcodone/APAP 5-325 [Wells 5/325] 1 each PO Q6HR PRN #20 tablet PRN Reason: Pain Referrals: PRIMARY CARE, [Primary Care Provider] - 3-5 Days ISADORA ZUÑIGA MD [Staff Physician] - 3-5 Days Time of Disposition: 11:00 Print Language: JAPANESE
--- NOTE | 2018-08-01 08:51 | XRay Report ---
FINAL REPORT EXAM: XR CHEST 1V AP HISTORY: shortness of breath TECHNIQUE: A portable semi-upright view the chest was submitted. FINDINGS: The heart size and mediastinum appear normal. The lungs are clear. There is no evidence of congestion or pleural effusion. The skeletal structures reveal a levoscoliosis of the mid dorsal spine. IMPRESSION: No acute cardiopulmonary process.
[2018-08-01 12:17] VITALS: BP 141/80
== END 2018-08-01 11:50 | disposition home or self-care (01) ==
LOC: ED 00:59
DX: R07.89 Other chest pain (principal); E11.65 Type 2 diabetes mellitus with hyperglycemia; M25.512 Pain in left shoulder; I10 Essential (primary) hypertension; K21.9 Gastro-esophageal reflux disease without esophagitis; M19.90 Unspecified osteoarthritis, unspecified site; F17.200 Nicotine dependence, unspecified, uncomplicated; Z90.49 Acquired absence of other specified parts of digestive tract; Z86.718 Personal history of other venous thrombosis and embolism
CPT/HCPCS: 36415; 71045; 80048; 82962; 84484; 84703; 85025; 93005; 93010; 96361; 96374; 96375; 99284; J2270; J2405; J7030; J1815

== ENCOUNTER 2018-12-23 13:43 | Emergency (ER) | payer MEDICARE ==
--- NOTE | 2018-12-23 14:08 | Emergency Department Report ---
Blank Doc - Documentation Documentation: 43 y o female with pmh of HTN and DM on medication presents to ED cc of high g lucose levels and high blood pressure. 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 reevaluate
[2018-12-23 14:31] LABS: Basophils # (Auto) 0.1 K/mm3 (0.0-0.1); Basophils % (Auto) 0.7 % (0.0-1.8); Eosinophils # (Auto) 0.1 K/mm3 (0.0-0.4); Eosinophils % (Auto) 1.1 % (0.0-4.3); Hematocrit 36.3 % (30.3-42.9); Hemoglobin 11.9 gm/dl (10.1-14.3); Lymphocytes # (Auto) 2.2 K/mm3 (1.2-5.4); Lymphocytes % (Auto) 30.2 % (13.4-35.0); Mean Corpuscular HGB Conc 33 % (30-34); Mean Corpuscular Volume 79 fl (79-97); Monocytes # (Auto) 0.4 K/mm3 (0.0-0.8); Monocytes % (Auto) 5.5 % (0.0-7.3); Platelet Count 194 K/mm3 (140-440); Red Blood Count 4.57 M/mm3 (3.65-5.03); Red Cell Distribution Width 14.3 % (13.2-15.2)
[2018-12-23 14:46] LABS: Alanine Aminotransferase 6 units/L (7-56); Albumin 3.5 g/dL (3.9-5); BUN/Creatinine Ratio 16; Blood Urea Nitrogen 8 mg/dL (7-17); Calcium 9.1 mg/dL (8.4-10.2); Hemolysis Index 2
[2018-12-23 14:58] VITALS: BP 135/88
[2018-12-23] MEDS ORDERED: K-DUR PO ONE (15:03)
--- NOTE | 2018-12-23 15:08 | Emergency Department Report ---
HPI - General Chief Complaint: High BP Time Seen by Provider: 12/23/18 14:02 - HPI HPI: This is a 43-year-old patient here reported that she was at a pain clinic office and her blood sugar was at 321 and she took some Humalog at about 8:15 this morning. She says she ran out of her blood pressure medication 30 days ago and her blood pressure was also elevated. Patient blood pressure and blood sugar is better when she came to the emergency room. Her blood sugar is 193 and her blood pressure is 176/91. She is asymptomatic. Patient does have a primary care physician. Denies any headache, fever or chills, nausea or vomiting ED Past Medical Hx - Past Medical History Previous Medical History?: Yes Hx Hypertension: Yes Hx Congestive Heart Failure: No Hx Diabetes: Yes Hx Deep Vein Thrombosis: Yes Hx Pulmonary Embolism: Yes Hx GERD: Yes Hx Arthritis: Yes Hx Asthma: No Hx COPD: No Hx HIV: No Additional medical history: high cholesterol - Surgical History Past Surgical History?: Yes Hx Cholecystectomy: Yes Additional Surgical History: L shoulder sx 2008, DVT removal left leg 01/2016. c sec. left BKA 2015 - Family History Family history: hypertension - Social History Smoking Status: Current Every Day Smoker Substance Use Type: None - Medications Home Medications: Home Medications Medication Instructions Recorded Confirmed Last Taken Type AtorvaSTATin [Lipitor] 40 mg PO QHS #30 tablet 06/25/18 Unknown Rx Carvedilol [Coreg] 3.125 mg PO BID #60 tablet 06/25/18 Unknown Rx Ferrous Sulfate [Iron] 325 mg PO TID #90 tablet 06/25/18 Unknown Rx Lisinopril [Zestril TAB] 40 mg PO QDAY #30 tablet 06/25/18 Unknown Rx Pantoprazole [Protonix TAB] 40 mg PO QDAY #30 tablet 06/25/18 Unknown Rx Pregabalin [Lyrica] 150 mg PO QDAY #30 capsule 06/25/18 Unknown Rx Rivaroxaban [Xarelto] 15 mg PO QDAY #30 tablet 06/25/18 Unknown Rx Insulin Aspart Protam & Aspart 35 unit SQ BID 30 Days ml 06/26/18 Unknown Rx [NovoLOG Mix 70-30 Flexpen] hydrALAZINE [Apresoline TAB] 100 mg PO TID #90 tab 06/26/18 Unknown Rx HYDROcodone/APAP 5-325 [[place] 1 each PO Q6HR PRN #20 tablet 08/01/18 Unknown Rx 5/325] ED Review of Systems ROS: Stated complaint: HYPERTENSION/HYPERGLYCEMia Other details as noted in HPI Constitutional: denies: chills, fever Respiratory: denies: cough, shortness of breath, wheezing Cardiovascular: denies: chest pain, palpitations, edema, syncope Gastrointestinal: denies: abdominal pain, nausea, vomiting, diarrhea Musculoskeletal: denies: back pain, joint swelling, arthralgia, myalgia Skin: denies: rash Neurological: denies: headache, numbness, paresthesias, confusion, abnormal gait, vertigo Physical Exam - Physical Exam Vital Signs: Vital Signs 12/23/18 12/23/18 14:04 14:57 Temperature 97.9 F Pulse Rate 102 H 106 H Respiratory 18 Rate Blood Pressure 135/88 [Left] Blood Pressure 176/98 [Right] O2 Sat by Pulse 100 Oximetry General: This is a 43-year-old female well-nourished well-developed in no acute distress Physical Exam: Head: Normocephalic, atraumatic. Mouth: Oral mucosa moist, tongue is normal, uvula is midline, no LEARNING ADMINISTRATOR or drooling, oral airways patent and uvula is Lungs: Clear to auscultated bilaterally, no rhonchi wheezes or rales. No use of accessory muscles. No chest wall tenderness CV: S1, S2. Mild tachycardia 102 ,Regular rhythm negative murmur. Eyes: Bilateral pupils equal and reactive to light, conjunctival injection or icterus. Bilateral EOM intact and normal accommodation. No nystagmus. Lids are normal. Skin: Clean dry and intact, no rash or lesions. Extremity: No cce. + 2 pulses in all extremities, no neurovascular compromise.No laceration, bruises then or contusion noted to extremities. Musculoskeletal: Range of motion in all extremities, no joint crepitus, erythema or effusion. Skin: Clean dry and intact, no rashes no lesions Mood: Normal mood and behavior ED Course Vital Signs 12/23/18 12/23/18 14:04 14:57 Temperature 97.9 F Pulse Rate 102 H 106 H Respiratory 18 Rate Blood Pressure 135/88 [Left] Blood Pressure 176/98 [Right] O2 Sat by Pulse 100 Oximetry Apical heart rate is at 98 bpm - Reevaluation(s) Reevaluation #1: 12/23/18 15:08 Patient's stable throughout ED course and her blood sugars at 193 and blood pressure has normalized ED Medical Decision Making - Lab Data Result diagrams: 12/23/18 14:19 12/23/18 14:19 Lab Results 12/23/18 12/23/18 12/23/18 Range/Units 13:57 14:19 14:19 WBC 7.3 (4.5-11.0) K/mm3 RBC 4.57 (3.65-5.03) M/mm3 Hgb 11.9 (10.1-14.3) gm/dl Hct 36.3 (30.3-42.9) % MCV 79 (79-97) fl MCH 26 L (28-32) pg MCHC 33 (30-34) % RDW 14.3 (13.2-15.2) % Plt Count 194 (140-440) K/mm3 Lymph % (Auto) 30.2 (13.4-35.0) % [place] % (Auto) 5.5 (0.0-7.3) % Eos % (Auto) 1.1 (0.0-4.3) % Baso % (Auto) 0.7 (0.0-1.8) % Lymph # 2.2 (1.2-5.4) K/mm3 [place] # 0.4 (0.0-0.8) K/mm3 Eos # 0.1 (0.0-0.4) K/mm3 Baso # 0.1 (0.0-0.1) K/mm3 Seg Neutrophils % 62.5 (40.0-70.0) % Seg Neutrophils # 4.5 (1.8-7.7) K/mm3 Sodium (137-145) mmol/L Potassium (3.6-5.0) mmol/L Chloride (98-107) mmol/L Carbon Dioxide (22-30) mmol/L Anion Gap mmol/L BUN (7-17) mg/dL Creatinine (0.7-1.2) mg/dL Estimated GFR ml/min BUN/Creatinine Ratio % Glucose (65-100) mg/dL POC Glucose 193 H (70-105) Calcium (8.4-10.2) mg/dL Total Bilirubin (0.1-1.2) mg/dL AST (5-40) units/L ALT (7-56) units/L Alkaline Phosphatase (35-129) units/L Total Protein (6.3-8.2) g/dL Albumin (3.9-5) g/dL Albumin/Globulin Ratio % HCG, Qual Negative (Negative) 12/23/18 Range/Units 14:19 WBC (4.5-11.0) K/mm3 RBC (3.65-5.03) M/mm3 Hgb (10.1-14.3) gm/dl Hct (30.3-42.9) % MCV (79-97) fl MCH (28-32) pg MCHC (30-34) % RDW (13.2-15.2) % Plt Count (140-440) K/mm3 Lymph % (Auto) (13.4-35.0) % [place] % (Auto) (0.0-7.3) % Eos % (Auto) (0.0-4.3) % Baso % (Auto) (0.0-1.8) % Lymph # (1.2-5.4) K/mm3 [place] # (0.0-0.8) K/mm3 Eos # (0.0-0.4) K/mm3 Baso # (0.0-0.1) K/mm3 Seg Neutrophils % (40.0-70.0) % Seg Neutrophils # (1.8-7.7) K/mm3 Sodium 139 (137-145) mmol/L Potassium 3.5 L (3.6-5.0) mmol/L Chloride 102.4 (98-107) mmol/L Carbon Dioxide 28 (22-30) mmol/L Anion Gap 12 mmol/L BUN 8 (7-17) mg/dL Creatinine 0.5 L (0.7-1.2) mg/dL Estimated GFR > 60 ml/min BUN/Creatinine Ratio 16 % Glucose 170 H (65-100) mg/dL POC Glucose (70-105) Calcium 9.1 (8.4-10.2) mg/dL Total Bilirubin < 0.20 (0.1-1.2) mg/dL AST 10 (5-40) units/L ALT 6 L (7-56) units/L Alkaline Phosphatase 80 (35-129) units/L Total Protein 6.4 (6.3-8.2) g/dL Albumin 3.5 L (3.9-5) g/dL Albumin/Globulin Ratio 1.2 % HCG, Qual (Negative) - Medical Decision Making Patient was sent from pain clinic office for elevated blood sugar pressure and also elevated blood sugar. Blood sugar and emergency room is 193 and she said it was over 300 and pain clinic and her blood pressure was elevated at pain clinic but it stabilized here. Her potassium was 3.5 and she was given 40 mEq of potassium in emergency room. I told her to eat a couple bananas today. She states she has been doing so but she takes a water pill her blood pressure. Patient stable throughout ED course and discharged home to monitor her blood pressure and her blood sugar daily and take to her primary care physician with her for evaluation and treatment. She agreed. Patient was stable she is afebrile mild tachycardia and monitor by apical heart rate is 98 bpm. Discharged home in stable condition to follow up with her primary care Critical care attestation.: If time is entered above; I have spent that time in minutes in the direct care of this critically ill patient, excluding procedure time. ED Disposition Clinical Impression: Elevated blood pressure reading with diagnosis of hypertension, Hypokalemia Hyperglycemia due to type 2 diabetes mellitus Qualifiers: Diabetes mellitus custodial insulin use: with custodial use Qualified Code(s): E11.65 - Type 2 diabetes mellitus with hyperglycemia Disposition: DC-01 TO HOME OR SELFCARE Is pt being admited?: No Does the pt Need Aspirin: No Condition: Stable Instructions: Hypokalemia (ED), Diabetes Mellitus Type 2 in Adults (ED), Hypertension (ED), Diabetic Hyperglycemia (ED) Additional Instructions: Please schedule an appointment leave primary care doctor for follow-up visit to manage to manage blood pressure and diabetes Increase water intake to at least 2-3 L of water daily Follow diabetic diet If his symptoms return, return to the emergency room Your potassium was mildly decreased so please eat a banana once daily. Referrals: Your, primary care doctor [Other] - 12/26/18 Forms: Accompanied Note
== END 2018-12-23 15:32 | disposition home or self-care (01) ==
LOC: ED 13:43
DX: E11.65 Type 2 diabetes mellitus with hyperglycemia (principal); I10 Essential (primary) hypertension; E87.6 Hypokalemia; M19.90 Unspecified osteoarthritis, unspecified site; F17.200 Nicotine dependence, unspecified, uncomplicated; Z90.49 Acquired absence of other specified parts of digestive tract; Z86.718 Personal history of other venous thrombosis and embolism; Z86.711 Personal history of pulmonary embolism
CPT/HCPCS: 36415; 80053; 82962; 84703; 85025

== ENCOUNTER 2019-01-27 03:37 | Emergency (ER) | payer MEDICARE ==
[2019-01-27] MEDS ORDERED: NORCO 5/325 PO ONE (05:17)
--- NOTE | 2019-01-27 06:35 | Emergency Department Report ---
ED General Adult HPI - General Chief complaint: Pain General Stated complaint: PAIN Time Seen by Provider: 01/27/19 06:16 Source: patient, EMS Mode of arrival: Ambulatory Limitations: No Limitations - History of Present Illness Initial comments: Patient is a 41-year-old female that presents emergency room with complaints of lower back pain. Patient states that the pain starts in her left lower back and radiates down her left leg. Patient states she has a chronic back pain and has been diagnosed with degenerative disc disease. Patient states that she always has a mild amount of pain but today her pain was more intense and severe. Patient does not remember injuring her back. Patient denies trauma and fall. Patient states that she has an amputation to her left lower extremity, left BKA and is possibility that she twisted her back walking with her prosthesis. Patient states that she does not take chronic pain medications. Patient denies other complaints. Patient denies chest pain shortness of breath. Patient denies fever or chills. Patient denies saddle numbness and loss control of bowel and urine -: Sudden Location: back Radiation: extremity Severity scale (0 -10): 6 Quality: stabbing Consistency: constant Improves with: rest Worsens with: movement Associated Symptoms: denies: confusion, chest pain, cough, diaphoresis, fever/chills, headaches, loss of appetite, malaise, nausea/vomiting, rash, seizure, shortness of breath, syncope, weakness Treatments Prior to Arrival: none - Related Data Previous Rx's Medication Instructions Recorded Last Taken Type AtorvaSTATin [Lipitor] 40 mg PO QHS #30 tablet 06/25/18 Unknown Rx Carvedilol [Coreg] 3.125 mg PO BID #60 tablet 06/25/18 Unknown Rx Ferrous Sulfate [Iron] 325 mg PO TID #90 tablet 06/25/18 Unknown Rx Lisinopril [Zestril TAB] 40 mg PO QDAY #30 tablet 06/25/18 Unknown Rx Pantoprazole [Protonix TAB] 40 mg PO QDAY #30 tablet 06/25/18 Unknown Rx Pregabalin [Lyrica] 150 mg PO QDAY #30 capsule 06/25/18 Unknown Rx Rivaroxaban [Xarelto] 15 mg PO QDAY #30 tablet 06/25/18 Unknown Rx Insulin Aspart Protam & Aspart 35 unit SQ BID 30 Days ml 08/12/18 Unknown Rx [NovoLOG Mix 70-30 Flexpen] hydrALAZINE [Apresoline TAB] 100 mg PO TID #90 tab 06/26/18 Unknown Rx HYDROcodone/APAP 5-325 [[place] 1 each PO Q6HR PRN #20 tablet 08/01/18 Unknown Rx 5/325] Metaxalone [Skelaxin] 800 mg PO TID PRN #15 tablet 01/27/19 Unknown Rx oxyCODONE /ACETAMINOPHEN [Percocet 1 tab PO Q4HR PRN #10 tab 01/27/19 Unknown Rx 5/325] Allergies Allergy/AdvReac Type Severity Reaction Status Date / Time No Known Allergies Allergy Verified 12/23/18 14:01 ED Review of Systems ROS: Stated complaint: PAIN Other details as noted in HPI Constitutional: denies: chills, fever Eyes: denies: eye pain, eye discharge, vision change ENT: denies: ear pain, throat pain Respiratory: denies: cough, shortness of breath, wheezing Cardiovascular: denies: chest pain, palpitations Endocrine: no symptoms reported Gastrointestinal: denies: abdominal pain, nausea, diarrhea Genitourinary: denies: urgency, dysuria, discharge Musculoskeletal: back pain. denies: joint swelling, arthralgia Skin: denies: rash, lesions Neurological: denies: headache, weakness, paresthesias Psychiatric: denies: anxiety, depression Hematological/Lymphatic: denies: easy bleeding, easy bruising ED Past Medical Hx - Past Medical History Previous Medical History?: Yes Hx Hypertension: Yes Hx Congestive Heart Failure: No Hx Diabetes: Yes Hx Deep Vein Thrombosis: Yes Hx Pulmonary Embolism: Yes Hx GERD: Yes Hx Arthritis: Yes Hx Asthma: No Hx COPD: No Hx HIV: No Additional medical history: high cholesterol - Surgical History Past Surgical History?: Yes Hx Cholecystectomy: Yes Additional Surgical History: L shoulder sx 2008, DVT removal left leg 01/2016. c sec. left BKA 2015 - Family History Family history: no significant - Social History Smoking Status: Former Smoker Substance Use Type: None - Medications Home Medications: Home Medications Medication Instructions Recorded Confirmed Last Taken Type AtorvaSTATin [Lipitor] 40 mg PO QHS #30 tablet 06/25/18 Unknown Rx Carvedilol [Coreg] 3.125 mg PO BID #60 tablet 06/25/18 Unknown Rx Ferrous Sulfate [Iron] 325 mg PO TID #90 tablet 06/25/18 Unknown Rx Lisinopril [Zestril TAB] 40 mg PO QDAY #30 tablet 06/25/18 Unknown Rx Pantoprazole [Protonix TAB] 40 mg PO QDAY #30 tablet 06/25/18 Unknown Rx Pregabalin [Lyrica] 150 mg PO QDAY #30 capsule 06/25/18 Unknown Rx Rivaroxaban [Xarelto] 15 mg PO QDAY #30 tablet 06/25/18 Unknown Rx Insulin Aspart Protam & Aspart 35 unit SQ BID 30 Days ml 06/26/18 Unknown Rx [NovoLOG Mix 70-30 Flexpen] hydrALAZINE [Apresoline TAB] 100 mg PO TID #90 tab 06/26/18 Unknown Rx HYDROcodone/APAP 5-325 [[place] 1 each PO Q6HR PRN #20 tablet 08/01/18 Unknown Rx 5/325] Metaxalone [Skelaxin] 800 mg PO TID PRN #15 tablet 01/27/19 Unknown Rx oxyCODONE /ACETAMINOPHEN [Percocet 1 tab PO Q4HR PRN #10 tab 01/27/19 Unknown Rx 5/325] ED Physical Exam - General Limitations: No Limitations General appearance: alert, in no apparent distress - Head Head exam: Present: atraumatic, normocephalic - Eye Eye exam: Present: normal appearance - ENT ENT exam: Present: mucous membranes moist - Neck Neck exam: Present: normal inspection - Respiratory Respiratory exam: Present: normal lung sounds bilaterally. Absent: respiratory distress - Cardiovascular Cardiovascular Exam: Present: regular rate, normal rhythm. Absent: systolic murmur, diastolic murmur, rubs, gallop - GI/Abdominal GI/Abdominal exam: Present: soft, normal bowel sounds. Absent: distended, tenderness, guarding - Rectal Rectal exam: Present: deferred - Extremities Exam Extremities exam: Present: normal inspection (except for left BKA amputation.), full ROM, normal capillary refill. Absent: pedal edema, calf tenderness - Back Exam Back exam: Present: normal inspection, other (positive straight leg test) - Neurological Exam Neurological exam: Present: alert, oriented X3 - Psychiatric Psychiatric exam: Present: normal affect, normal mood - Skin Skin exam: Present: warm, dry, intact, normal color. Absent: rash ED Course Vital Signs 03/01/27/19 01/27/19 03:42 04:19 05:00 Temperature 97.7 F 97.9 F Pulse Rate 95 H 90 91 H Respiratory 18 17 23 Rate Blood Pressure 179/106 165/130 Blood Pressure 164/108 [Left] O2 Sat by Pulse 97 99 98 Oximetry 01/27/19 01/27/19 06:00 07:00 Temperature Pulse Rate 91 H 88 Respiratory 25 H 13 Rate Blood Pressure 158/100 155/95 Blood Pressure [Left] O2 Sat by Pulse 100 97 Oximetry - Reevaluation(s) Reevaluation #1: Findings are consistent with lumbar strain and acute on chronic back pain. Discussed plan of care with patient. Patient agrees plan of care. Patient states that her pain has improved with the pain medications that were given to her. Patient stable for discharge. Patient will be discharged home. Patient given discharge instructions. Patient instructed to follow up with primary care and orthopedist. Patient was understanding of discharge instructions. 01/27/19 07:14 ED Medical Decision Making - Medical Decision Making Patient is a 43-year-old female that presents to emergency room for left back pain. Patient has a long history of intermittent back pain and degenerative disc disease to the lumbar spine. Patient was given a short course of pain medication as well as instructions to take ibuprofen and Tylenol. Patient will need to follow up with the orthopedist. - Differential Diagnosis lumbar strain, sprain. Degenerative disc disease. Acute on chronic back p Critical care attestation.: If time is entered above; I have spent that time in minutes in the direct care of this critically ill patient, excluding procedure time. ED Disposition Clinical Impression: Back pain Qualifiers: Back pain location: low back pain Chronicity: acute Back pain laterality: left Sciatica presence: with sciatica Sciatica laterality: sciatica of left side Qualified Code(s): M54.42 - Lumbago with sciatica, left side Lumbar sprain Qualifiers: Encounter type: initial encounter Qualified Code(s): S33.5XXA - Sprain of ligaments of lumbar spine, initial encounter Disposition: - TO HOME OR SELFCARE Is pt being admited?: No Does the pt Need Aspirin: No Condition: Stable Instructions: Low Back Strain (ED), Acute Low Back Pain (ED), Chronic Back Pain (ED), Back Pain (ED), Core Strengthening Exercises (GEN) Additional Instructions: Patient to follow up with primary care in 2-3 days. Patient to return to ER if condition worsens. Patient to follow-up with an orthopedist in 2-3 days. Patient to take Tylenol or ibuprofen when necessary for pain. Patient take meds as directed. Patient to increase water. Patient to rest. Prescriptions: oxyCODONE /ACETAMINOPHEN [Percocet 5/325] 1 tab PO Q4HR PRN #10 tab PRN Reason: Pain , Severe (7-10) Metaxalone [Skelaxin] 800 mg PO TID PRN #15 tablet PRN Reason: Spasms [facility] [place] [facility] SUGEY [Referring] - 2-3 Days NAVEEN KO MD [Staff Physician] - 2-3 Days Time of Disposition: 07:19
[2019-01-27 07:19] VITALS: BP 155/95
== END 2019-01-27 07:35 | disposition home or self-care (01) ==
LOC: ED 03:37
DX: S33.5XXA Sprain of ligaments of lumbar spine, initial encounter (principal); M54.42 Lumbago with sciatica, left side; I10 Essential (primary) hypertension; E11.9 Type 2 diabetes mellitus without complications; K21.9 Gastro-esophageal reflux disease without esophagitis; M19.90 Unspecified osteoarthritis, unspecified site; E78.00 Pure hypercholesterolemia, unspecified; Z90.49 Acquired absence of other specified parts of digestive tract; Z87.891 Personal history of nicotine dependence; Z86.718 Personal history of other venous thrombosis and embolism; Z86.711 Personal history of pulmonary embolism; Z79.899 Other long term (current) drug therapy; X50.1XXA Overexertion from prolonged static or awkward postures, initial encounter; Y93.89 Activity, other specified; Y92.89 Other specified places as the place of occurrence of the external cause; Y99.8 Other external cause status
CPT/HCPCS: 99283

== ENCOUNTER 2019-02-01 17:58 | Emergency (ER) | payer MEDICARE ==
[2019-02-01] MEDS ORDERED: ASPIRIN PO ONE (18:11)
[2019-02-01] MEDS ORDERED: SUBLIMAZE IV ONE (18:32)
[2019-02-01] MEDS ORDERED: NACL 0.9% 500 ML 500 ML IV ONE (18:33)
--- NOTE | 2019-02-01 18:34 | Emergency Department Report ---
ED Chest Pain HPI - General Chief Complaint: Chest Pain Stated Complaint: CHEST PAIN Time Seen by Provider: 02/01/19 18:21 Source: patient, EMS (ems notes not available at time of chart dictation), RN notes reviewed, old records reviewed Mode of arrival: Stretcher Limitations: Physical Limitation - History of Present Illness Initial Comments: This is a 43-year-old female. The patient has a history of multiple DVTs, pulmonary emboli, reportedly does not have IVC filter, also has a history of type 2 diabetes, hypertension, GERD, high cholesterol, left above-knee amputation, supposed to be on chronic xarelto Patient ran out of her anticoagulation 3 weeks ago, secondary to insurance issues. She reports that she now has insurance. Her primary care doctor is Dr. Jaimie Ortiz. Her vascular surgeon was Dr. Rainer Tenorio. She does not have a local rn production. The patient presents to the emergency room with a complaint of nontraumatic left sided chest pain. The chest pain is burning. It does not radiate to the back, arms or neck. There is no vomiting, diaphoresis, there is no shortness of breath. No recent aspirin use. No recent cocaine use. The patient denies headache, neck pain, abdominal pain, hematemesis, bright red blood per rectum. Patient admitted to this hospital June 2018, had a cardiac workup, including a nuclear stress test, which was deemed to be unremarkable and normal for the patient's age. Cardiology team evaluated the patient, felt that her chest pain was likely secondary to GERD, and she had a preserved ejection fraction on 2-D echocardiogram. The patient reports that she now has [employer] insurance, and indicates she will be able to afford prescriptions at this time. She reports being on 15 mg daily of xarelto prophylaxis. MD Complaint: chest pain -: Gradual Onset: during rest Pain Location: left chest Pain Radiation: none Severity: mild Severity scale (0 -10): 9 Quality: aching Consistency: constant Improves With: nothing Worsens With: nothing Aspirin use within the Past 7 Days: (0) No - Related Data On Oral Contraceptives: No Previous Rx's Medication Instructions Recorded Last Taken Type AtorvaSTATin [Lipitor] 40 mg PO QHS #30 tablet 06/25/18 Unknown Rx Carvedilol [Coreg] 3.125 mg PO BID #60 tablet 06/25/18 Unknown Rx Ferrous Sulfate [Iron] 325 mg PO TID #90 tablet 06/25/18 Unknown Rx Lisinopril [Zestril TAB] 40 mg PO QDAY #30 tablet 06/25/18 Unknown Rx Pantoprazole [Protonix TAB] 40 mg PO QDAY #30 tablet 06/25/18 Unknown Rx Pregabalin [Lyrica] 150 mg PO QDAY #30 capsule 06/25/18 Unknown Rx Insulin Aspart Protam & Aspart 35 unit SQ BID 30 Days ml 06/26/18 Unknown Rx [NovoLOG Mix 70-30 Flexpen] hydrALAZINE [Apresoline TAB] 100 mg PO TID #90 tab 06/26/18 Unknown Rx HYDROcodone/APAP 5-325 [[place] 1 each PO Q6HR PRN #20 tablet 08/01/18 Unknown Rx 5/325] Metaxalone [Skelaxin] 800 mg PO TID PRN #15 tablet 01/27/19 Unknown Rx oxyCODONE /ACETAMINOPHEN [Percocet 1 tab PO Q4HR PRN #10 tab 01/27/19 Unknown Rx 5/325] Famotidine [Pepcid] 20 mg PO QDAY #30 tablet 02/01/19 Unknown Rx Rivaroxaban [Xarelto] 15 mg PO QDAY #30 tablet 02/01/19 Unknown Rx Allergies Allergy/AdvReac Type Severity Reaction Status Date / Time No Known Allergies Allergy Verified 12/23/18 14:01 Heart Score - HEART Score History: Slightly suspicious EKG: Non-specific Age: 45-65 Risk factors: > 3 risk factors or hx of atherosclerotic disease Troponin: < normal limit HEART Score: 4 - Critical Actions Critical Actions: 4-6 pts:12-16.6% risk of adverse cardiac event. Should be admitted ED Review of Systems ROS: Stated complaint: CHEST PAIN Other details as noted in HPI Constitutional: denies: fever, malaise Eyes: denies: vision change ENT: denies: epistaxis Respiratory: denies: cough Cardiovascular: chest pain Gastrointestinal: denies: abdominal pain, nausea, vomiting Genitourinary: denies: dysuria Musculoskeletal: denies: back pain Skin: denies: lesions Neurological: denies: weakness Psychiatric: denies: anxiety ED Past Medical Hx - Past Medical History Previous Medical History?: Yes Hx Hypertension: Yes Hx Congestive Heart Failure: No Hx Diabetes: Yes Hx Deep Vein Thrombosis: Yes Hx Pulmonary Embolism: Yes (DVT; Takes Xarelto) Hx GERD: Yes Hx Arthritis: Yes Hx Asthma: No Hx COPD: No Hx HIV: No Additional medical history: high cholesterol - Surgical History Past Surgical History?: Yes Hx Cholecystectomy: Yes Additional Surgical History: L shoulder sx 2008, DVT removal left leg 01/2016. c sec. left BKA 2015 - Social History Smoking Status: Current Some Day Smoker Substance Use Type: None - Medications Home Medications: Home Medications Medication Instructions Recorded Confirmed Last Taken Type AtorvaSTATin [Lipitor] 40 mg PO QHS #30 tablet 06/25/18 Unknown Rx Carvedilol [Coreg] 3.125 mg PO BID #60 tablet 06/25/18 Unknown Rx Ferrous Sulfate [Iron] 325 mg PO TID #90 tablet 06/25/18 Unknown Rx Lisinopril [Zestril TAB] 40 mg PO QDAY #30 tablet 06/25/18 Unknown Rx Pantoprazole [Protonix TAB] 40 mg PO QDAY #30 tablet 06/25/18 Unknown Rx Pregabalin [Lyrica] 150 mg PO QDAY #30 capsule 06/25/18 Unknown Rx Insulin Aspart Protam & Aspart 35 unit SQ BID 30 Days ml 06/26/18 Unknown Rx [NovoLOG Mix 70-30 Flexpen] hydrALAZINE [Apresoline TAB] 100 mg PO TID #90 tab 06/26/18 Unknown Rx HYDROcodone/APAP 5-325 [[place] 1 each PO Q6HR PRN #20 tablet 08/01/18 Unknown Rx 5/325] Metaxalone [Skelaxin] 800 mg PO TID PRN #15 tablet 01/27/19 Unknown Rx oxyCODONE /ACETAMINOPHEN [Percocet 1 tab PO Q4HR PRN #10 tab 01/27/19 Unknown Rx 5/325] Famotidine [Pepcid] 20 mg PO QDAY #30 tablet 02/01/19 Unknown Rx Rivaroxaban [Xarelto] 15 mg PO QDAY #30 tablet 02/01/19 Unknown Rx ED Physical Exam - General Limitations: Physical Limitation General appearance: alert, in no apparent distress - Head Head exam: Present: atraumatic, normocephalic - Eye Eye exam: Present: normal appearance, EOMI. Absent: nystagmus - ENT ENT exam: Present: normal exam, normal orophraynx, mucous membranes moist, normal external ear exam - Neck Neck exam: Present: normal inspection, full ROM. Absent: tenderness, meningismus - Respiratory Respiratory exam: Present: normal lung sounds bilaterally. Absent: respiratory distress - Cardiovascular Cardiovascular Exam: Present: regular rate, normal rhythm, normal heart sounds. Absent: bradycardia, tachycardia, irregular rhythm, systolic murmur, diastolic murmur, rubs, gallop - GI/Abdominal GI/Abdominal exam: Present: soft. Absent: distended, tenderness, guarding, rebound, rigid, pulsatile mass - Extremities Exam Extremities exam: Present: normal inspection, full ROM, other (2+ pulses noted in the bilateral upper extremities and right lower extremity. Left lower extrem ity status post above -knee amputation. No palpable cord. Negative Homans sign.). Absent: pedal edema, joint swelling, calf tenderness - Back Exam Back exam: Present: normal inspection, full ROM. Absent: tenderness, CVA tenderness (R), paraspinal tenderness, vertebral tenderness - Neurological Exam Neurological exam: Present: alert, oriented X3, other (Extraocular movements intact. Tongue midline. No facial droop. Facial sensation intact to light touch in the V1, V2, V3 distribution bilaterally. 5 and 5 strength in 4 extremities.. Sensation is intact to light touch in 4 extremities.). Absent: motor sensory deficit - Psychiatric Psychiatric exam: Present: normal affect, normal mood - Skin Skin exam: Present: warm, dry, intact, normal color. Absent: rash ED Course Vital Signs 02/01/19 02/01/19 02/01/19 18:06 18:08 18:31 Temperature 98.1 F Pulse Rate 86 88 90 Respiratory 13 16 13 Rate Blood Pressure 166/101 166/101 Blood Pressure [Right] O2 Sat by Pulse 100 98 99 Oximetry 02/01/19 02/01/19 02/01/19 20:30 21:31 21:43 Temperature Pulse Rate 93 H 96 H 97 H Respiratory 15 12 Rate Blood Pressure 170/107 192/105 192/105 Blood Pressure [Right] O2 Sat by Pulse 100 Oximetry 02/01/19 23:56 Temperature Pulse Rate 83 Respiratory 18 Rate Blood Pressure Blood Pressure 187/97 [Right] O2 Sat by Pulse 100 Oximetry - Reevaluation(s) Reevaluation #1: 02/01/19 20:12 Differential diagnosis, including not limited to: GERD, gastritis, hiatal hernia, pulmonary embolus, acute coronary syndrome Assessment and plan: 43-year-old female who supposed to be on lifelong anticoagulation, now has insurance, with left-sided chest pain. The patient is afebrile with reassuring vital signs, not tachycardic, not hypoxic, and is currently pain-free. Troponin negative 1, had a negative nuclear stress test within the past 12 months, cleared by cardiology in August 2018, d-dimer elevated, and CT scan of the chest is pending at this time. Heart score of 4 is elevated and appreciated, however, the patient did have a risk stratification, her EKG today appears to be unchanged from prior EKGs, and she is resting comfortably at this time. The local cardiology groups are typically quite amenable to seeing patients closely as an outpatient. We will obtain CT scan of the chest to exclude pulmonary embolus, obtain additional troponin, additional EKG. Assuming repeat laboratory studies, repeat troponin, CT scan of the chest negative for acute disease, we will refill the patient's anticoagulation, and discharge her with supportive pain medication, with instructions to follow up with outpatient cardiology, outpatient vascular surgery and outpatient primary care. care transferred to Dr Eric Morillo to follow up on cta chest and repeat troponin, repeat ekg JAIRO score - Jairo Score Age > 65: (0) No (Low suspicion for cardiac disease) Aspirin use within the Past 7 Days: (0) No 3 or more CAD Risk Factors: (1) Yes 2 or more Angina events in past 24 hrs: (0) No Known CAD with more than 50% Stenosis: (0) No Elevated Cardiac Markers: (0) No ST Deviation Greater than 0.5mm: (0) No JAIRO Score: 1 ED Medical Decision Making - Lab Data Result diagrams: 02/01/19 18:48 02/01/19 18:48 Vital Signs 02/01/19 18:08 Temperature 98.1 F Pulse Rate 88 Respiratory 16 Rate Blood Pressure 166/101 O2 Sat by Pulse 98 Oximetry Lab Results 02/01/19 02/01/19 02/01/19 Range/Units 18:48 18:48 18:48 WBC 8.9 (4.5-11.0) K/mm3 RBC 4.76 (3.65-5.03) M/mm3 Hgb 12.3 (10.1-14.3) gm/dl Hct 36.9 (30.3-42.9) % MCV 78 L (79-97) fl MCH 26 L (28-32) pg MCHC 33 (30-34) % RDW 15.6 H (13.2-15.2) % Plt Count 199 (140-440) K/mm3 Lymph % (Auto) 31.0 (13.4-35.0) % Sanders % (Auto) 6.7 (0.0-7.3) % Eos % (Auto) 1.2 (0.0-4.3) % Baso % (Auto) 1.3 (0.0-1.8) % Lymph # 2.8 (1.2-5.4) K/mm3 Sanders # 0.6 (0.0-0.8) K/mm3 Eos # 0.1 (0.0-0.4) K/mm3 Baso # 0.1 (0.0-0.1) K/mm3 Seg Neutrophils % 59.8 (40.0-70.0) % Seg Neutrophils # 5.3 (1.8-7.7) K/mm3 PT 12.3 (12.2-14.9) Sec. INR 0.87 (0.87-1.13) APTT 20.0 L (24.2-36.6) Sec. D-Dimer 489.55 H (0-234) ng/mlDDU Sodium 138 (137-145) mmol/L Potassium 3.7 (3.6-5.0) mmol/L Chloride 101.1 (98-107) mmol/L Carbon Dioxide 25 (22-30) mmol/L Anion Gap 16 mmol/L BUN 8 (7-17) mg/dL Creatinine 0.4 L (0.7-1.2) mg/dL Estimated GFR > 60 ml/min BUN/Creatinine Ratio 20 % Glucose 273 H (65-100) mg/dL Calcium 9.3 (8.4-10.2) mg/dL Troponin T < 0.010 (0.00-0.029) ng/mL HCG, Quant (0-4) mIU/mL 02/01/19 Range/Units 18:48 WBC (4.5-11.0) K/mm3 RBC (3.65-5.03) M/mm3 Hgb (10.1-14.3) gm/dl Hct (30.3-42.9) % MCV (79-97) fl MCH (28-32) pg MCHC (30-34) % RDW (13.2-15.2) % Plt Count (140-440) K/mm3 Lymph % (Auto) (13.4-35.0) % Sanders % (Auto) (0.0-7.3) % Eos % (Auto) (0.0-4.3) % Baso % (Auto) (0.0-1.8) % Lymph # (1.2-5.4) K/mm3 Sanders # (0.0-0.8) K/mm3 Eos # (0.0-0.4) K/mm3 Baso # (0.0-0.1) K/mm3 Seg Neutrophils % (40.0-70.0) % Seg Neutrophils # (1.8-7.7) K/mm3 PT (12.2-14.9) Sec. INR (0.87-1.13) APTT (24.2-36.6) Sec. D-Dimer (0-234) ng/mlDDU Sodium (137-145) mmol/L Potassium (3.6-5.0) mmol/L Chloride (98-107) mmol/L Carbon Dioxide (22-30) mmol/L Anion Gap mmol/L BUN (7-17) mg/dL Creatinine (0.7-1.2) mg/dL Estimated GFR ml/min BUN/Creatinine Ratio % Glucose (65-100) mg/dL Calcium (8.4-10.2) mg/dL Troponin T (0.00-0.029) ng/mL HCG, Quant 1.86 (0-4) mIU/mL - EKG Data -: EKG Interpreted by Me EKG shows normal: sinus rhythm Rate: normal - EKG Data 02/01/19 20:11 Sinus rhythm, 87 bpm, left axis deviation, left anterior fascicular block, poor R-wave progression, high left ventricular voltage, abnormal EKG, not consistent with ST elevation myocardial infarction, EKG today appears to be unchanged from prior EKGs from July 2018, August 2018, April,. Critical care attestation.: If time is entered above; I have spent that time in minutes in the direct care of this critically ill patient, excluding procedure time. ED Disposition Clinical Impression: Medication refill, Chest pain Disposition: DC-01 TO HOME OR SELFCARE Is pt being admited?: No Does the pt Need Aspirin: No Condition: Stable Instructions: Chest Pain (ED) Additional Instructions: Take the medications as needed/directed. Do not take metformin for the next 48 hours. Follow-up with her rn production within the next 3-4 days. follow up with a vascular surgeon within the next 2 weeks. Return to the emergency room right away with new pain, worsened pain, migration of pain, vomiting, change in mental status, confusion, new, worsening or different symptoms. Prescriptions: Famotidine [Pepcid] 20 mg PO QDAY #30 tablet Rivaroxaban [Xarelto] 15 mg PO QDAY #30 tablet Referrals: TRISHA SCHAFER MD [Staff Physician] - 3-5 Days RAINER TENORIO MD [Staff Physician] - 7-10 days JAIMIE ORTIZ MD [Primary Care Provider] - as needed
[2019-02-01 19:36] LABS: Basophils # (Auto) 0.1 K/mm3 (0.0-0.1); Basophils % (Auto) 1.3 % (0.0-1.8); Eosinophils # (Auto) 0.1 K/mm3 (0.0-0.4); Eosinophils % (Auto) 1.2 % (0.0-4.3); Hematocrit 36.9 % (30.3-42.9); Hemoglobin 12.3 gm/dl (10.1-14.3); Lymphocytes # (Auto) 2.8 K/mm3 (1.2-5.4); Mean Corpuscular HGB Conc 33 % (30-34); Mean Corpuscular Volume 78 fl (79-97); Monocytes # (Auto) 0.6 K/mm3 (0.0-0.8); Monocytes % (Auto) 6.7 % (0.0-7.3); Red Blood Count 4.76 M/mm3 (3.65-5.03); Red Cell Distribution Width 15.6 % (13.2-15.2)
[2019-02-01 19:37] LABS: Platelet Count 199 K/mm3 (140-440)
[2019-02-01 19:47] LABS: INR 0.87 (0.87-1.13)
[2019-02-01 19:53] LABS: BUN/Creatinine Ratio 20; Blood Urea Nitrogen 8 mg/dL (7-17); Calcium 9.3 mg/dL (8.4-10.2); Hemolysis Index 20
[2019-02-01] MEDS ORDERED: APRESOLINE IV ONE (20:11)
[2019-02-01] MEDS ORDERED: PEPCID IV ONE (20:11)
--- NOTE | 2019-02-01 22:31 | Cat Scan Report ---
PROCEDURE: CT ANGIOGRAM OF THE CHEST FOR PULMONARY EMBOLISM TECHNIQUE: Computerized axial tomographic angiography of the chest and pulmonary arteries was perfor med after the IV injection of iodinated nonionic contrast. The image data was postprocessed using max imum intensity projection (MIP) and 2-dimensional multiplanar reformatted (MPR) techniques. The exami nation is specifically tailored to the evaluation of the pulmonary arteries per clinical request. Au tomated exposure control, adjustment of mA and/or kV according to patient size, or iterative reconstr uction dose optimization techniques were utilized. CPT G9637, 20314 HISTORY: Shortness of breath R06.02, chest pain unspecified R07.9 , COMPARISONS: None . FINDINGS: Heart and pericardium: No pericardial effusion or thickening. Thoracic aorta: Normal. Pulmonary vasculature: Normal. No pulmonary emboli. Lymph nodes: No enlarged thoracic lymph nodes. Lungs: Normal. Pleural space: No effusion, thickening, or pneumothorax. Musculoskeletal structures: No significant abnormality. Upper abdominal structures: No significant abnormality. IMPRESSION: No evidence of pulmonary emboli. This document is electronically signed by Sheba Willis MD., February 01 2019 10:29:47 PM ET
--- NOTE | 2019-02-01 23:06 | Event Note ---
Date: 02/01/19 Patient was reassessed and is currently having no chest pain. Patient has 2 sets of troponin which are negative. Patient has a CT PE which also was negative. Patient be discharged.
[2019-02-01 23:57] VITALS: BP 187/97
== END 2019-02-01 23:56 | disposition home or self-care (01) ==
LOC: ED 17:58
DX: R07.89 Other chest pain (principal); I10 Essential (primary) hypertension; E11.9 Type 2 diabetes mellitus without complications; K21.9 Gastro-esophageal reflux disease without esophagitis; M19.90 Unspecified osteoarthritis, unspecified site; F17.200 Nicotine dependence, unspecified, uncomplicated; E78.00 Pure hypercholesterolemia, unspecified; Z76.0 Encounter for issue of repeat prescription; Z79.899 Other long term (current) drug therapy; Z90.49 Acquired absence of other specified parts of digestive tract; Z86.718 Personal history of other venous thrombosis and embolism; Z86.711 Personal history of pulmonary embolism; Z79.4 Long term (current) use of insulin
CPT/HCPCS: 36415; 71275; 80048; 84484; 84702; 85025; 85379; 85610; 85730; 93005; 93010; 96374; 96375; 99284; J0360; J3010; J7040; Q9967

== ENCOUNTER 2019-11-03 16:40 | Emergency (ER) | payer MEDICARE | END 2019-11-03 23:10 | disposition left against medical advice (07) | LOC: ED 16:40 | DX: M79.605 Pain in left leg (principal); Z53.21 Procedure and treatment not carried out due to patient leaving prior to being seen by health care provider ==

== ENCOUNTER 2020-01-07 22:15 | Emergency (ER) | payer MEDICARE ==
--- NOTE | 2020-01-07 22:31 | Emergency Department Report ---
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 I have evaluated this patient in the past. Her past medical history includes multiple DVTs, pulmonary emboli, no IVC filter, type 2 diabetes, hypertension, GERD, high cholesterol, left above-knee amputation, currently on chronic systemic anticoagulation, Xarelto, 10 mg. It was prescribed by a local physician within the past 30 days, but she indicates she does not have a local primary care doctor, cone examiner. She has not followed up with her vascular surgeon in over a year. She has not followed up with a glass maker. She is brought to the hospital by emergency medical services with a complaint of chest pain. The chest pain is central and left-sided. It has been present for approximately 11.5 hours. It is pleuritic in nature and does not radiate anywhere. No fever, no exertional shortness of breath, no nausea or vomiting, no diaphoresis. Positive recent aspirin consumption within the past 7 days. She also endorses right medial thigh cramping and discomfort. No recent travel, surgeries or immobilizations. She states she is motivated to take care of her health, and she stopped smoking 10 days ago. No recent cardiac stress test s heriberto 2018 -: Gradual, hour(s) Location: chest, right, lower extremity Quality: aching Consistency: intermittent Improves with: rest Worsens with: movement - Related Data Previous Rx's Medication Instructions Recorded Last Taken Type AtorvaSTATin [Lipitor] 40 mg PO QHS #30 tablet 06/25/18 Unknown Rx Ferrous Sulfate [Iron 325 MG] 325 mg PO TID #90 tablet 06/25/18 Unknown Rx Pantoprazole [Protonix TAB] 40 mg PO QDAY #30 tablet 06/25/18 Unknown Rx Pregabalin 150 mg PO QDAY #30 capsule 06/25/18 Unknown Rx carvediloL [Coreg] 3.125 mg PO BID #60 tablet 06/25/18 Unknown Rx lisinopriL [Zestril TAB] 40 mg PO QDAY #30 tablet 06/25/18 Unknown Rx Insulin Aspart Protam & Aspart 35 unit SQ BID 30 Days ml 06/26/18 Unknown Rx [NovoLOG Mix 70-30 Flexpen] hydrALAZINE [Apresoline TAB] 100 mg PO TID #90 tab 06/26/18 Unknown Rx HYDROcodone/APAP 5-325 [[place] 1 each PO Q6HR PRN #20 tablet 08/01/18 Unknown Rx 5/325] Metaxalone [Skelaxin] 800 mg PO TID PRN #15 tablet 01/27/19 Unknown Rx oxyCODONE /ACETAMINOPHEN [Percocet 1 tab PO Q4HR PRN #10 tab 01/27/19 Unknown Rx 5/325] Famotidine [Pepcid] 20 mg PO QDAY #30 tablet 02/01/19 Unknown Rx Rivaroxaban [Xarelto] 15 mg PO QDAY #30 tablet 02/01/19 Unknown Rx Allergies Allergy/AdvReac Type Severity Reaction Status Date / Time No Known Allergies Allergy Verified 11/03/19 16:41 ED Review of Systems ROS: Stated complaint: CP/HYPERGLYCEMIA Other details as noted in HPI Constitutional: denies: fever Eyes: denies: eye discharge Respiratory: denies: cough, SOB with exertion, SOB at rest Cardiovascular: chest pain Gastrointestinal: denies: abdominal pain, hematemesis, melena, hematochezia Genitourinary: denies: dysuria Musculoskeletal: arthralgia, myalgia Skin: denies: lesions Neurological: denies: weakness Hematological/Lymphatic: denies: easy bleeding ED Past Medical Hx - Past Medical History Hx Hypertension: Yes Hx Congestive Heart Failure: No Hx Diabetes: Yes Hx Deep Vein Thrombosis: Yes Hx Pulmonary Embolism: Yes (DVT; Takes Xarelto) Hx GERD: Yes Hx Arthritis: Yes Hx Asthma: No Hx COPD: No Hx HIV: No Additional medical history: high cholesterol - Surgical History Hx Cholecystectomy: Yes Additional Surgical History: L shoulder sx 2008, DVT removal left leg 01/2016. c sec. left BKA 2015 - Social History Smoking Status: Current Some Day Smoker Substance Use Type: None - Medications Home Medications: Home Medications Medication Instructions Recorded Confirmed Last Taken Type AtorvaSTATin [Lipitor] 40 mg PO QHS #30 tablet 06/25/18 Unknown Rx Ferrous Sulfate [Iron 325 MG] 325 mg PO TID #90 tablet 06/25/18 Unknown Rx Pantoprazole [Protonix TAB] 40 mg PO QDAY #30 tablet 06/25/18 Unknown Rx Pregabalin 150 mg PO QDAY #30 capsule 06/25/18 Unknown Rx carvediloL [Coreg] 3.125 mg PO BID #60 tablet 06/25/18 Unknown Rx lisinopriL [Zestril TAB] 40 mg PO QDAY #30 tablet 06/25/18 Unknown Rx Insulin Aspart Protam & Aspart 35 unit SQ BID 30 Days ml 06/26/18 Unknown Rx [NovoLOG Mix 70-30 Flexpen] hydrALAZINE [Apresoline TAB] 100 mg PO TID #90 tab 06/26/18 Unknown Rx HYDROcodone/APAP 5-325 [[place] 1 each PO Q6HR PRN #20 tablet 08/01/18 Unknown Rx 5/325] Metaxalone [Skelaxin] 800 mg PO TID PRN #15 tablet 01/27/19 Unknown Rx oxyCODONE /ACETAMINOPHEN [Percocet 1 tab PO Q4HR PRN #10 tab 01/27/19 Unknown Rx 5/325] Famotidine [Pepcid] 20 mg PO QDAY #30 tablet 02/01/19 Unknown Rx Rivaroxaban [Xarelto] 15 mg PO QDAY #30 tablet 02/01/19 Unknown Rx ED Physical Exam - General Limitations: Other (Chaperoned by fire hydrant mechanic Ronit) General appearance: alert, in no apparent distress, obese - Head Head exam: Present: atraumatic, normocephalic - Eye Eye exam: Present: normal appearance, EOMI. Absent: nystagmus - ENT ENT exam: Present: normal exam, normal orophraynx, mucous membranes moist, normal external ear exam - Neck Neck exam: Present: normal inspection, full ROM. Absent: tenderness, meningismus - Respiratory Respiratory exam: Present: normal lung sounds bilaterally, chest wall tenderness, other (There is no redness, pus or streaking). Absent: respiratory distress, wheezes, rales, rhonchi, stridor - Cardiovascular Cardiovascular Exam: Present: regular rate, normal rhythm, normal heart sounds. Absent: bradycardia, tachycardia, irregular rhythm, systolic murmur, diastolic murmur, rubs, gallop - GI/Abdominal GI/Abdominal exam: Present: soft. Absent: distended, tenderness, guarding, rebound, rigid, pulsatile mass - Extremities Exam Extremities exam: Present: normal inspection, full ROM, other (2+ pulses noted in the bilateral upper extremities and right lower extremity. There is no right lower extremity tenderness. There is no palpable cord or Homans sign. The muscular compartments are soft. Left lower extremity is status post above-knee amputation, prosthesis is noted). Absent: pedal edema, calf tenderness - Back Exam Back exam: Present: normal inspection, full ROM. Absent: tenderness, CVA tenderness (R), CVA tenderness (L), paraspinal tenderness, vertebral tenderness - Neurological Exam Neurological exam: Present: alert, other (There is no facial droop. The tongue is midline. Extraocular movements are intact bilaterally. There is 5 out of 5 strength in bilateral upper and lower extremities. Sensation is intact to light touch bilateral upper and lower extremities. ). Absent: motor sensory deficit - Psychiatric Psychiatric exam: Present: normal mood, anxious - Skin Skin exam: Present: warm, dry, intact, normal color. Absent: rash ED Course Vital Signs 01/07/20 01/08/20 22:32 01:27 Temperature 97.9 F 98.1 F Pulse Rate 88 82 Respiratory 16 13 Rate Blood Pressure 181/94 Blood Pressure 184/98 [Left] O2 Sat by Pulse 100 98 Oximetry - Reevaluation(s) Reevaluation #1: 01/07/20 23:44 Differential diagnosis, including but not limited to: Costochondritis, pleurisy, pneumonia, pulmonary embolism, pericarditis, myocarditis, acute coronary syndrome, pneumothorax, right lower extremity sprain, strain, DVT, myositis Assessment and plan: 44-year-old female with 2 complaints Complaints #1, right-sided chest wall pain, intermittent for approximately 12 hours that is reproducible. She is afebrile with reassuring vital signs, hypertension chronic, EKG unchanged from prior, her cardiovascular risk factor profile is reviewed and appreciated, however based off of her history and physical, and given that the patient should be able to obtain close outpatient cardiology follow-up with 1 of our local cardiology practices, as per the current policy and procedures of this institution, for the purposes of ACS or stratification, will perform EKG x2, and troponin x2. We will reassess after initial data points. Screening laboratory studies sent, we will obtain CT scan of the chest. Complaint #2, right lower extremity pain. Her exam is unremarkable. We will treat her pain, send appropriate laboratory studies, and obtain right lower extremity DVT study. Reevaluation #2: 01/08/20 01:10 X-ray of the chest negative for acute disease. CT scan of the chest is negative for acute disease. Repeat Accu-Chek, vital signs, troponin and EKG pending. Reevaluation #3: 01/08/20 02:02 Feeling improved. Blood pressure 167/70. Troponin negative x2. EKG unchanged x2. Objective testing negative for acute pathology. Patient's paperwork faxed to [facility] cardiology as per this institutions policy and procedures, we discussed patient's labs, physical, and findings with the patient, instructed her on need to remain compliant with medications, and follow-up as an outpatient. Return precautions are reviewed. Most likely diagnosis is pleurisy versus costochondritis ED Medical Decision Making - Lab Data Result diagrams: 01/07/20 23:05 01/07/20 23:05 Vital Signs 01/07/20 22:32 Temperature 97.9 F Pulse Rate 88 Respiratory 16 Rate Blood Pressure 181/94 O2 Sat by Pulse 100 Oximetry Labs 01/07/20 01/07/20 01/07/20 23:05 23:05 23:05 WBC 7.1 RBC 4.80 Hgb 14.0 Hct 39.9 MCV 83 MCH 29 MCHC 35 H RDW 13.3 Plt Count 193 PT 11.8 L INR 0.86 L D-Dimer VBG pH Sodium 136 L Potassium 3.5 L Chloride 97.0 L Carbon Dioxide 26 Anion Gap 17 BUN 11 Creatinine 0.5 L Estimated GFR > 60 BUN/Creatinine Ratio 22 Glucose 417 H Calcium 9.6 Magnesium 2.00 Total Bilirubin 0.20 AST 20 ALT 25 Alkaline Phosphatase 116 Total Creatine Kinase 72 Troponin T < 0.010 Total Protein 6.7 Albumin 3.8 L Albumin/Globulin Ratio 1.3 HCG, Quant 01/07/20 01/07/20 01/08/20 23:05 23:05 00:10 WBC RBC Hgb Hct MCV MCH MCHC RDW Plt Count PT INR D-Dimer 283.9 H VBG pH 7.443 H Sodium Potassium Chloride Carbon Dioxide Anion Gap BUN Creatinine Estimated GFR BUN/Creatinine Ratio Glucose Calcium Magnesium Total Bilirubin AST ALT Alkaline Phosphatase Total Creatine Kinase Troponin T Total Protein Albumin Albumin/Globulin Ratio HCG, Quant 1.44 - EKG Data -: EKG Interpreted by Me EKG shows normal: sinus rhythm Rate: normal - EKG Data When compared to previous EKG there are: no significant change 01/08/20 00:48 The EKG today is abnormal. It is unchanged from prior EKG. Sinus rhythm, 81 bpm, left axis deviation, QTC 477 ms, left ventricular hypertrophy, left anterior fascicular block, poor R wave progression, QTC prolonged. Unchanged from prior EKG from 02/01/2019. Not a STEMI - Radiology Data Radiology results: report reviewed, image reviewed Print Report Referring Physician: SUSHIL CHAPPELL Patient Name: CHANDA MERCADO Date of : 1975 Sex: Female Report Date: 2020-01-08 Report Status: Finalized Findings [facility] [address] [place] [address] Vascular Lab Report Signed Patient: CHANDA MERCADO MR#: [id number] : 1975 Acct:[id number] Age/Sex: 44 / F ADM Date: 01/07/20 Loc: ED Attending Dr: Ordering Physician: SUSHIL CHAPPELL MD Date of Service: 01/07/20 Procedure(s): VL venous duplex LE RT Accession Number(s): [id number] cc: SUSHIL CHAPPELL MD DUPLEX DOPPLER LOWER EXTREMITY VEINS, RIGHT INDICATION: rle pain cramping. TECHNIQUE: Duplex doppler imaging was performed through the veins of the right lower extremity using venous compression and other maneuvers. COMPARIS ON: None available. FINDINGS: Common Femoral vein: Negative. Superficial Femoral vein: Negative. Popliteal vein: Negative. Calf veins: Negative. Additional findings: None. IMPRESSION: 1. No sonographic evidence for DVT in the right lower extremity. Signer Name: Justin Louis MD Signed: 01/08/2020 12:33 AM Workstation Name: [id number] Transcribed By: MATIAS Dictated By: Justin Louis MD Electronically Authenticated By: Justin Louis MD Signed Date/Time: 01/08/2032 DD/ Critical care attestation.: If time is entered above; I have spent that time in minutes in the direct care of this critically ill patient, excluding procedure time. ED Disposition Clinical Impression: Chest wall pain, Right leg pain, Hyperglycemia Disposition: - TO HOME OR SELFCARE Is pt being admited?: No Does the pt Need Aspirin: No Condition: Stable Additional Instructions: Do not take metformin medication for the next 2 days, if patient takes this medication. Patient may take Tylenol [id number], 650 mg by mouth, every 4-6 hours as needed for pain. Recommend patient follow-up with her primary care doctor or cone examiner within the next 3 to 5 days. Patient may contact any of the listed local physicians on her discharge paperwork, to arrange close outpatient follow-up. Avoid consumption of tobacco, alcohol, sugary foods, simple carbohydrates, please return to the emergency room right away with new, worsened or different symptoms, or symptoms not present on the initial emergency room evaluation. Referrals: PRIMARY CAREMD [Primary Care Provider] - 3-5 Days SIM MARI MD [Staff Physician] - 3-5 Days TRISHA SCHAFER MD [Staff Physician] - 3-5 Days OLAMIDE SNEED MD [Staff Physician] - 3-5 Days
[2020-01-07] MEDS ORDERED: SODIUM CHLORIDE 0.9% 500 ML 500 ML IV ONE (22:53)
[2020-01-07] MEDS ORDERED: ACETAMINOPHEN 325 MG TAB PO ONE (22:53)
[2020-01-07] MEDS ORDERED: MORPHINE 2 MG/1 ML INJ IV ONE (22:53)
[2020-01-07] MEDS ORDERED: FAMOTIDINE 20 MG/2 ML INJ IV ONE (22:53)
[2020-01-07 23:39] LABS: Hematocrit 39.9 % (30.3-42.9); Mean Corpuscular HGB Conc 35 % (30-34); Mean Corpuscular Volume 83 fl (79-97); Platelet Count 193 K/mm3 (140-440); Red Cell Distribution Width 13.3 % (13.2-15.2)
[2020-01-07 23:49] LABS: INR 0.86 (0.87-1.13)
[2020-01-08 00:06] LABS: Alanine Aminotransferase 25 units/L (7-56); Albumin 3.8 g/dL (3.9-5); BUN/Creatinine Ratio 22; Blood Urea Nitrogen 11 mg/dL (7-17); Calcium 9.6 mg/dL (8.4-10.2); Hemolysis Index 2
[2020-01-08] MEDS ORDERED: INSULIN REGULAR, HUMAN 100 UNITS/1 ML IV ONE (00:08)
--- NOTE | 2020-01-08 00:37 | Vascular Lab Report ---
DUPLEX DOPPLER LOWER EXTREMITY VEINS, RIGHT INDICATION: rle pain cramping. TECHNIQUE: Duplex doppler imaging was performed through the veins of the right lower extremity using venous comp ression and other maneuvers. COMPARISON: None available. FINDINGS: Common Femoral vein: Negative. Superficial Femoral vein: Negative. Popliteal vein: Negative. Calf veins: Negative. Additional findings: None. IMPRESSION: 1. No sonographic evidence for DVT in the right lower extremity. Signer Name: Justin Louis MD Signed: 01/08/2020 12:33 AM Workstation Name: [id number]
--- NOTE | 2020-01-08 01:04 | Cat Scan Report ---
CTA CHEST WITH IV CONTRAST INDICATION: pleuritic cp, hx of dvt pe. TECHNIQUE: Axial CT images were obtained through the chest after injection of IV contrast. 3 plane MIP reconstru ctions were produced. All CT scans at this location are performed using CT dose reduction for ALARA b y means of automated exposure control. COMPARISON: CT 02/01/2019 FINDINGS: Pulmonary Arteries: No pulmonary emboli. Thoracic Aorta: No acute abnormality. Heart: Normal. Lungs: No acute air space or interstitial disease. Pleura: No pleural effusion. No pneumothorax. Lymph Nodes: No significant adenopathy. Additional Findings: None. Upper Abdomen: No acute findings. Skeletal Structures: No significant osseous abnormality. IMPRESSION: 1. No CT evidence for pulmonary embolism. 2. No acute findings. Signer Name: Justin Louis MD Signed: 01/08/2020 12:59 AM Workstation Name: [id number]
--- NOTE | 2020-01-08 01:04 | XRay Report ---
CHEST 1 VIEW INDICATION: cp. COMPARISON: 917 and 18. FINDINGS: Support devices: None. Heart: Normal. Lungs/Pleura: No acute pulmonary or pleural findings. IMPRESSION: 1. No acute findings. Signer Name: Justin Louis MD Signed: 01/08/2020 1:00 AM Workstation Name: [id number]
[2020-01-08 03:47] VITALS: BP 156/105
== END 2020-01-08 02:23 | disposition home or self-care (01) ==
LOC: ED 22:15
DX: R07.89 Other chest pain (principal); M79.604 Pain in right leg; E11.65 Type 2 diabetes mellitus with hyperglycemia; I10 Essential (primary) hypertension; K21.9 Gastro-esophageal reflux disease without esophagitis; M19.90 Unspecified osteoarthritis, unspecified site; F17.200 Nicotine dependence, unspecified, uncomplicated; Z90.49 Acquired absence of other specified parts of digestive tract; Z98.890 Other specified postprocedural states; Z79.4 Long term (current) use of insulin; Z79.899 Other long term (current) drug therapy
CPT/HCPCS: 36415; 71045; 71275; 80053; 82550; 82805; 82962; 83735; 84484; 84702; 85027; 85379; 85610; 93005; 93010; 93971; 96374; 96375; 99285; J2270; J7040; Q9967

== ENCOUNTER 2021-04-30 17:40 | Emergency (ER) | payer MEDICARE | END 2021-04-30 17:45 | disposition left against medical advice (07) | LOC: ED 17:40 | DX: R73.9 Hyperglycemia, unspecified (principal); Z53.21 Procedure and treatment not carried out due to patient leaving prior to being seen by health care provider ==